=== PATIENT | female | born 1970 | race American Indian/Alaskan Native ===

== ENCOUNTER 2016-07-24 08:36 | Outpatient (CLI) | payer MEDICARE | END 2016-07-24 08:37 | disposition home or self-care (01) | LOC: LAB 08:36 | PROVIDERS: ATTEND Clinical Nurse Specialist Psychiatric/Mental Health | DX: F25.0 Schizoaffective disorder, bipolar type (principal) | CPT/HCPCS: 36415; 86592 ==

== ENCOUNTER 2016-07-26 13:06 | Emergency (ER) | payer MEDICARE ==
[2016-07-26 13:16] VITALS: BP 113/76
[2016-07-26 14:11] LABS: Bacteria,Urine 2+ /HPF (Negative); Bilirubin,Urine NEG (Negative); Blood,Urine NEG (Negative); Ketones,Urine TR mg/dL (Negative); Leukocyte Esterase,Urine NEG (Negative); Mucus,Urine 2+ /HPF; Nitrite,Urine POS (Negative); Protein,Urine <15 mg/dL mg/dL (Negative); Urobilinogen,Urine < 2.0 mg/dL (<2.0)
--- NOTE | 2016-07-26 15:55 | Emergency Department Report ---
ED Female HPI - General Chief complaint: Dental/Oral Stated complaint: TONGUE SWOLLEN/BROWN VAG DISCHARGE Time Seen by Provider: 07/26/16 15:54 Source: patient Mode of arrival: Ambulatory Limitations: No Limitations - History of Present Illness Initial comments: Patient here reports that her tongue has been swollen since Wednesday and she took Benadryl and it went down. Denies any new food or medication in her environment. Patient also says she has a brown vaginal discharge for a week and a half. Denies any urinary burning frequency or urgency. Patient says she used peroxide and mouthwash and it helped but reported that she is also having some sore throat. Denies any drooling, fever or chills, difficulty swallowing , nausea or vomiting, shortness of breath or chest pain. Patient reported that she uses drugs sometimes and she had unsafe sex with men to include giving oral sex. She said that she thinks she has STD and she is concerned about her throat. Patient is requesting to be treated for STDs. She denies any urinary frequency urgency or burning. Denies any abdominal or back pain. MD Complaint: vaginal discharge, possible STD Onset/Timin -: days(s) Severity scale (0 -10): 0 Are you Now?: No (partial hysterectomy) Associated Symptoms: vaginal discharge, other (sore throat). denies: vaginal bleeding, abdominal pain, nausea/vomiting, fever/chills, headaches, loss of appetite, dysuria, hematuria, rash, seizure, shortness of breath, syncope, weakness - Related Data Sexually active: Yes Home Medications Medication Instructions Recorded Confirmed Last Taken Asenapine Maleate [Saphris] 10 mg SL DAILY 09/24/15 09/24/15 09/30/15 HYDROcodone/APAP 5-325 [[place] 1 each PO Q6HR PRN 09/24/15 09/24/15 09/30/15 5/325] amLODIPine [Norvasc] 5 mg PO DAILY 09/24/15 09/24/15 10/01/15 06:15 buPROPion SR [Wellbutrin Sr] 150 mg PO QAM 09/24/15 09/24/15 10/01/15 06:15 lamoTRIgine [LaMICtal] 200 mg PO QDAY 09/24/15 09/24/15 10/01/15 06:15 metFORMIN [Glucophage] 1,000 mg PO BID 09/24/15 09/27/15 09/30/15 Insulin Glargine [Lantus VIAL] 35 unit SUB-Q QHS 09/27/15 09/27/15 09/30/15 Sitagliptin Phosphate [Januvia] 100 mg PO DAILY 09/27/15 09/27/15 09/30/15 Propranolol 10 mg PO DAILY 10/01/15 10/01/15 10/01/15 06:15 Previous Rx's Medication Instructions Recorded Last Taken Type Nitrofurantoin [place]/M-Cryst 100 mg PO Q12HR #14 capsule 07/26/16 Unknown Rx [Macrobid CAP] Allergies Allergy/AdvReac Type Severity Reaction Status Date / Time shellfish derived Allergy Shortness Verified 08/01/15 09:25 of Breath ED Review of Systems ROS: Stated complaint: TONGUE SWOLLEN/BROWN VAG DISCHARGE Other details as noted in HPI Comment: All other systems reviewed and negative Constitutional: denies: chills, fever Eyes: denies: eye discharge ENT: throat pain. denies: ear pain, congestion Respiratory: no symptoms reported Cardiovascular: denies: chest pain, palpitations, edema, syncope Gastrointestinal: denies: abdominal pain, nausea, vomiting, diarrhea Genitourinary: discharge. denies: urgency, dysuria, frequency, hematuria, dyspareunia Musculoskeletal: denies: back pain, arthralgia, myalgia Skin: denies: rash Neurological: denies: headache, numbness, paresthesias, confusion, abnormal gait , vertigo ED Past Medical Hx - Past Medical History Previous Medical History?: Yes Hx Hypertension: Yes (X 2 YRS) Hx Diabetes: Yes Hx Headaches / Migraines: Yes (MIGRAINES) Hx Psychiatric Treatment: Yes (depression, bipolar, schizoaffective disorder, PTSD) - Surgical History Past Surgical History?: Yes Additional Surgical History: partial hysterectomy, hernia reppair - Family History Family history: hypertension - Social History Smoking Status: Current Every Day Smoker Substance Use Type: Cocaine, Marijuana - Medications Home Medications: Home Medications Medication Instructions Recorded Confirmed Last Taken Type Asenapine Maleate [Saphris] 10 mg SL DAILY 09/24/15 09/24/15 09/30/15 History HYDROcodone/APAP 5-325 [[place] 1 each PO Q6HR PRN 09/24/15 09/24/15 09/30/15 History 5/325] amLODIPine [Norvasc] 5 mg PO DAILY 09/24/15 09/24/15 10/01/15 06:15 History buPROPion SR [Wellbutrin Sr] 150 mg PO QAM 09/24/15 09/24/15 10/01/15 06:15 History lamoTRIgine [LaMICtal] 200 mg PO QDAY 09/24/15 09/24/15 10/01/15 06:15 History metFORMIN [Glucophage] 1,000 mg PO BID 09/24/15 09/27/15 09/30/15 History Insulin Glargine [Lantus VIAL] 35 unit SUB-Q QHS 09/27/15 09/27/15 09/30/15 History Sitagliptin Phosphate [Januvia] 100 mg PO DAILY 09/27/15 09/27/15 09/30/15 History Propranolol 10 mg PO DAILY 10/01/15 10/01/15 10/01/15 06:15 History Nitrofurantoin [place]/M-Cryst 100 mg PO Q12HR #14 capsule 07/26/16 Unknown Rx [Macrobid CAP] ED Physical Exam - General Limitations: No Limitations General appearance: alert, in no apparent distress - Head Head exam: Present: normocephalic, normal inspection - Eye Eye exam: Present: normal appearance, PERRL, EOMI. Absent: scleral icterus, conjunctival injection, periorbital swelling, periorbital tenderness Pupils: Present: normal accommodation - ENT ENT exam: Present: normal exam, normal orophraynx, mucous membranes moist, TM's normal bilaterally, normal external ear exam - Neck Neck exam: Present: normal inspection, full ROM. Absent: tenderness, meningismus, lymphadenopathy - Respiratory Respiratory exam: Present: normal lung sounds bilaterally. Absent: respiratory distress, wheezes, rales, rhonchi, stridor, chest wall tenderness - Cardiovascular Cardiovascular Exam: Present: normal rhythm, tachycardia, normal heart sounds - GI/Abdominal GI/Abdominal exam: Present: soft, normal bowel sounds. Absent: distended, tenderness, guarding, rebound, rigid - External exam: Present: normal external exam. Absent: erythema, swelling, lesions, lacerations, ecchymosis, bleeding Speculum exam: Present: tissue - Extremities Exam Extremities exam: Present: normal inspection, full ROM, tenderness, normal capillary refill. Absent: pedal edema, joint swelling - Back Exam Back exam: Present: normal inspection, full ROM. Absent: tenderness, CVA tenderness (R), CVA tenderness (L), muscle spasm, paraspinal tenderness, vertebral tenderness, rash noted - Neurological Exam Neurological exam: Present: alert, oriented X3, normal gait. Absent: motor sensory deficit, reflexes normal - Psychiatric Psychiatric exam: Present: normal affect, normal mood - Skin Skin exam: Present: warm, dry, intact, normal color. Absent: rash ED Course Vital Signs 07/26/16 13:13 Temperature 97.5 F L Pulse Rate 110 H Respiratory 16 Rate Blood Pressure 113/76 O2 Sat by Pulse 99 Oximetry Vital Signs 07/26/16 07/26/16 13:13 17:45 Temperature 97.5 F L Pulse Rate 110 H 84 Respiratory 16 Rate Blood Pressure 113/76 O2 Sat by Pulse 99 Oximetry - Reevaluation(s) Reevaluation #1: 07/26/16 17:45 Patient treated for urinary tract infection and possible contact with STD vaginal discharge. She had no adverse reaction from medication. ED Medical Decision Making - Lab Data Lab Results 07/26/16 Range/Units 13:33 Urine Color Yellow (Yellow) Urine Turbidity Clear (Clear) Urine pH 5.0 (5.0-7.0) Ur Specific [place] 1.023 (1.003-1.030) Urine Protein <15 mg/dl (Negative) mg/dL Urine Glucose (UA) Neg (Negative) mg/dL Urine Ketones Tr (Negative) mg/dL Urine Blood Neg (Negative) Urine Nitrite Pos (Negative) Urine Bilirubin Neg (Negative) Urine Urobilinogen < 2.0 (<2.0) mg/dL Ur Leukocyte Esterase Neg (Negative) Urine WBC (Auto) 2.0 (0.0-6.0) /HPF Urine RBC (Auto) 4.0 (0.0-6.0) /HPF U Epithel Cells (Auto) 3.0 (0-13.0) /HPF Urine Bacteria (Auto) 2+ (Negative) /HPF Urine Mucus 2+ /HPF Urine culture pending Strep Test is negative Throat culture for gonorrhea and strep is pending - Medical Decision Making ED course: Patient here to be treated for STDs because she is concerned about STDs from having unprotected sex and also given oral sex. Her urinalysis came back positive for urinary tract infection. Strep test negative and urine culture, strep culture and gonorrhea throat culture pending. Patient treated with Zithromax 1 g by mouth, Rocephin 1 g IM to cover gonorrhea and UTI and Flagyl 2 g by mouth times one dose to cover Trichomonas. I discussed results with patient and she voiced understanding discussed with her that she needs to follow-up with her primary care physician and if she does not have a primary care physician she can follow up with the health department for further testing. Discussed with patient that her throat did not look red and she did not look like she has thrush. Patient discharged home she had no adverse reaction to medication and discharged home with prescription for Macrobid to cover urinary tract infection. Critical care attestation.: If time is entered above; I have spent that time in minutes in the direct care of this critically ill patient, excluding procedure time. ED Disposition Clinical Impression: Acute cystitis without hematuria, Vaginal discharge, Concern about STD in female without diagnosis Disposition: DISCHARGED TO HOME OR SELFCARE Is pt being admited?: No Does the pt Need Aspirin: No Condition: Stable Instructions: Safe Sex (ED), Urinary Tract Infection in Children (ED) Additional Instructions: Please practice safe sex follow-up at your primary care physician office or held department for STD testing in 7-10 days We will call you if you her throat culture comes back positive for strep or gonorrhea Take medication for urinary tract infection as prescribed Increase her fluid intake Prescriptions: Nitrofurantoin [place]/M-Cryst [Macrobid CAP] 100 mg PO Q12HR #14 capsule Referrals: PRIMARY CARE, [Primary Care Provider] - 3-5 Days [facility] [Outside] - 3-5 Days Forms: Work/School Release Form(ED)
[2016-07-26] MEDS ORDERED: XYLOCAINE 1% MPF 5 mL INFILTRATI ONE (16:45)
[2016-07-26] MEDS ORDERED: ROCEPHIN IM STA (16:45)
[2016-07-26] MEDS ORDERED: ZITHROMAX PO ONE (16:49)
[2016-07-26] MEDS ORDERED: FLAGYL PO ONE (16:49)
== END 2016-07-26 19:05 | disposition home or self-care (01) ==
LOC: ED 13:06
DX: N30.00 Acute cystitis without hematuria (principal); N89.8 Other specified noninflammatory disorders of vagina; I10 Essential (primary) hypertension; E11.9 Type 2 diabetes mellitus without complications; G43.909 Migraine, unspecified, not intractable, without status migrainosus; F25.9 Schizoaffective disorder, unspecified; F31.9 Bipolar disorder, unspecified; F17.200 Nicotine dependence, unspecified, uncomplicated; F12.90 Cannabis use, unspecified, uncomplicated; Z79.4 Long term (current) use of insulin; Z91.013 Allergy to seafood
CPT/HCPCS: 81001; 87076; 87086; 87116; 87186; 87430; 96372; 99284; J0696

== ENCOUNTER 2016-08-12 08:22 | Outpatient (CLI) | payer MEDICARE | END 2016-08-12 08:23 | disposition home or self-care (01) | LOC: LAB 08:22 | PROVIDERS: ATTEND Psychiatry & Neurology Psychiatry | DX: E11.9 Type 2 diabetes mellitus without complications (principal); I10 Essential (primary) hypertension; F32.9 Major depressive disorder, single episode, unspecified; F17.200 Nicotine dependence, unspecified, uncomplicated | CPT/HCPCS: 36415; 83036 ==

== ENCOUNTER 2017-04-21 11:53 | Emergency (ER) | payer MEDICARE ==
[2017-04-21 13:18] LABS: Basophils # (Auto) 0.1 K/mm3 (0.0-0.1); Basophils % (Auto) 0.6 % (0.0-1.8); Eosinophils # (Auto) 0.2 K/mm3 (0.0-0.4); Eosinophils % (Auto) 1.9 % (0.0-4.3); Hematocrit 45.9 % (30.3-42.9); Lymphocytes # (Auto) 3.5 K/mm3 (1.2-5.4); Lymphocytes % (Auto) 26.7 % (13.4-35.0); Mean Corpuscular HGB Conc 33 % (30-34); Mean Corpuscular Hemoglobin 29 pg (28-32); Mean Corpuscular Volume 88 fl (79-97); Monocytes # (Auto) 0.7 K/mm3 (0.0-0.8); Monocytes % (Auto) 5.6 % (0.0-7.3); Platelet Count 249 K/mm3 (140-440); Red Blood Count 5.22 M/mm3 (3.65-5.03); Red Cell Distribution Width 14.4 % (13.2-15.2)
[2017-04-21 13:33] LABS: Alanine Aminotransferase 14 units/L (7-56); Albumin 3.9 g/dL (3.9-5); BUN/Creatinine Ratio 17; Blood Urea Nitrogen 12 mg/dL (7-17); Calcium 9.7 mg/dL (8.4-10.2); Hemolysis Index 13; Lipase 56 units/L (13-60)
[2017-04-21 14:08] LABS: Bacteria,Urine 1+ /HPF (Negative); Bilirubin,Urine NEG (Negative); Blood,Urine NEG (Negative); Color,Urine Yellow (Yellow); Mucus,Urine FEW /HPF; Nitrite,Urine NEG (Negative); Protein,Urine <15 mg/dL mg/dL (Negative); Urobilinogen,Urine < 2.0 mg/dL (<2.0)
[2017-04-21] MEDS ORDERED: TESSALON PERLES PO ONE (16:55)
[2017-04-21] MEDS ORDERED: MOTRIN PO ONE (16:55)
[2017-04-21 17:11] VITALS: BP 126/88
[2017-04-21] MEDS ORDERED: K-DUR PO ONE (18:00)
[2017-04-21] MEDS ORDERED: NACL 0.9% 1000 ML 1,000 ML IV ONE (18:00)
[2017-04-21] MEDS ORDERED: ZOFRAN IV ONE (18:00)
--- NOTE | 2017-04-21 18:09 | Emergency Department Report ---
- General Chief Complaint: Upper Respiratory Infection Stated Complaint: FLU LIKE SYMPTOMS Time Seen by Provider: 04/21/17 16:53 Source: patient Mode of arrival: Ambulatory Limitations: No Limitations - History of Present Illness Initial Comments: This is a 47- year-old female nontoxic, well nourished in appearance, no acute signs of distress presents to the ED with c/o of productive cough, nausea, body aches, rhinorrhea, and nasal congestion x 2 days. Patient stated vomited x1 episode of food content yesterday but denies any vomiting today. Patient describes productive cough as yellow mucus production. Patient denies any headache. Patient denies any recent travels, long car rides, or recent hospital stays. Patient denies calf pain or calf tenderness. Patient denies drooling or hoarseness. Denies any hemoptysis. Patient denies chest pain, abdominal pain, shortness of breath, fever, chills, nausea, vomiting, headache, stiff neck, numbness, tingling. Patient states allergies to shellfish. PMH includes HTN and DM. MD Complaint: cough, rhinorrhea, nasal congestion -: days(s) (2) Severity: mild Severity scale (0 -10): 8 Quality: aching Consistency: constant Improves With: nothing Worsens With: nothing Associated Symptoms: rhinorrhea, nasal congestion, cough, nausea. denies: fever , chills, myalgias, diaphoresis, headache, sore throat, stiff neck, chest pain, shortness of breath, abdominal pain, vomiting, diarrhea, dysuria, rash, confusion, right sweats, weight loss, epistaxis, hoarseness, ear pain Treatments Prior to Arrival: none - Related Data Home Medications Medication Instructions Recorded Confirmed Last Taken lamoTRIgine [LaMICtal] 200 mg PO QDAY 09/24/15 12/02/16 12/01/16 metFORMIN [Glucophage] 1,000 mg PO BID 09/24/15 12/02/16 12/01/16 Sitagliptin Phosphate [Januvia] 100 mg PO DAILY 09/27/15 12/02/16 12/01/16 amLODIPine [Norvasc] 10 mg PO DAILY 12/02/16 12/02/16 12/01/16 Previous Rx's Medication Instructions Recorded Last Taken Type Azithromycin [Zithromax Z-TERE] 250 mg PO DAILY #6 tablet 04/21/17 Unknown Rx Benzonatate [Tessalon Perle] 100 mg PO Q6H PRN #20 capsule 04/21/17 Unknown Rx Ondansetron [Zofran Odt] 4 mg PO Q8HR PRN #20 tab.rapdis 04/21/17 Unknown Rx Oseltamivir [Tamiflu] 75 mg PO BID #14 cap 04/21/17 Unknown Rx Allergies Allergy/AdvReac Type Severity Reaction Status Date / Time shellfish derived Allergy Shortness Verified 08/01/15 09:25 of Breath ED Review of Systems ROS: Stated complaint: FLU LIKE SYMPTOMS Other details as noted in HPI Constitutional: denies: chills, fever Eyes: denies: eye pain, eye discharge, vision change ENT: denies: ear pain, throat pain Respiratory: cough. denies: shortness of breath, wheezing Cardiovascular: denies: chest pain, palpitations Endocrine: no symptoms reported Gastrointestinal: nausea. denies: abdominal pain, diarrhea Genitourinary: denies: urgency, dysuria, discharge Musculoskeletal: denies: back pain, joint swelling, arthralgia Skin: denies: rash, lesions Neurological: denies: headache, weakness, paresthesias Psychiatric: denies: anxiety, depression Hematological/Lymphatic: denies: easy bleeding, easy bruising ED Past Medical Hx - Past Medical History Previous Medical History?: Yes Hx Hypertension: Yes Hx Heart Attack/AMI: No Hx Congestive Heart Failure: No Hx Diabetes: Yes Hx Deep Vein Thrombosis: No Hx Pulmonary Embolism: No Hx GERD: No Hx Liver Disease: No Hx Renal Disease: Yes Hx Headaches / Migraines: No Hx Seizures: No Hx Psychiatric Treatment: Yes (depression, bipolar, schizoaffective disorder, PTSD) Hx Asthma: No Hx COPD: No Hx Tuberculosis: No Hx Dementia: No - Surgical History Past Surgical History?: Yes Hx Coronary Stent: No Hx Pacemaker: No Hx Internal Defibrillator: No Additional Surgical History: partial hysterectomy, hernia repair, bladder repair - Social History Smoking Status: Current Every Day Smoker Substance Use Type: Prescribed - Medications Home Medications: Home Medications Medication Instructions Recorded Confirmed Last Taken Type lamoTRIgine [LaMICtal] 200 mg PO QDAY 09/24/15 12/02/16 12/01/16 History metFORMIN [Glucophage] 1,000 mg PO BID 09/24/15 12/02/16 12/01/16 History Sitagliptin Phosphate [Januvia] 100 mg PO DAILY 09/27/15 12/02/16 12/01/16 History amLODIPine [Norvasc] 10 mg PO DAILY 12/02/16 12/02/16 12/01/16 History Azithromycin [Zithromax Z-TERE] 250 mg PO DAILY #6 tablet 04/21/17 Unknown Rx Benzonatate [Tessalon Perle] 100 mg PO Q6H PRN #20 capsule 04/21/17 Unknown Rx Ondansetron [Zofran Odt] 4 mg PO Q8HR PRN #20 tab.rapdis 04/21/17 Unknown Rx Oseltamivir [Tamiflu] 75 mg PO BID #14 cap 04/21/17 Unknown Rx ED Physical Exam - General Limitations: No Limitations General appearance: alert, in no apparent distress - Head Head exam: Present: atraumatic, normocephalic - Eye Eye exam: Present: normal appearance, PERRL, EOMI Pupils: Present: normal accommodation - ENT ENT exam: Present: normal exam, normal orophraynx, mucous membranes moist, TM's normal bilaterally, normal external ear exam - Neck Neck exam: Present: normal inspection, full ROM. Absent: tenderness, meningismus, lymphadenopathy, thyromegaly - Respiratory Respiratory exam: Present: normal lung sounds bilaterally. Absent: respiratory distress, wheezes, rales, rhonchi, stridor, chest wall tenderness, accessory muscle use, decreased breath sounds, prolonged expiratory - Cardiovascular Cardiovascular Exam: Present: regular rate, normal rhythm, normal heart sounds. Absent: irregular rhythm, systolic murmur, diastolic murmur, rubs, gallop - GI/Abdominal GI/Abdominal exam: Present: soft, normal bowel sounds. Absent: distended, tenderness, guarding, rebound, rigid, diminished bowel sounds - Rectal Rectal exam: Present: deferred - Extremities Exam Extremities exam: Present: normal inspection, full ROM, normal capillary refill. Absent: tenderness, pedal edema, joint swelling, calf tenderness - Back Exam Back exam: Present: normal inspection, full ROM. Absent: tenderness, CVA tenderness (R), CVA tenderness (L), muscle spasm, paraspinal tenderness, vertebral tenderness, rash noted - Neurological Exam Neurological exam: Present: alert, oriented X3, CN II-XII intact, normal gait, reflexes normal - Psychiatric Psychiatric exam: Present: normal affect, normal mood - Skin Skin exam: Present: warm, dry, intact, normal color. Absent: rash ED Course Vital Signs 04/21/17 04/21/17 04/21/17 12:02 17:01 17:10 Temperature 97.8 F Pulse Rate 105 H 92 H Respiratory 20 20 20 Rate Blood Pressure 123/82 Blood Pressure 126/88 [Left] O2 Sat by Pulse 99 98 Oximetry 04/21/17 04/21/17 17:13 18:01 Temperature 98.4 F Pulse Rate Respiratory 18 Rate Blood Pressure Blood Pressure [Left] O2 Sat by Pulse Oximetry - Reevaluation(s) Reevaluation #1: 04/21/17 18:19 Patient is speaking in full sentences with no signs of distress noted. - Consultations Consultation #1: 04/21/17 18:19 Dr. Baptiste has been consulted on patient history, physical exam, and laboratory findings and agrees to plan of care in the emergency room as well as discharge. ED Medical Decision Making - Lab Data Result diagrams: 04/21/17 12:54 04/21/17 12:54 - Medical Decision Making This is a 33-year-old female that presents with upper resp infection. Patient is stable and was examined by me. Chest xray has been obtained and dictated by radiologist with possible bronchitis. Patient notified of x-ray results with no question or by the patient. Vital signs stable prior to discharge. Patient received 1 L of normal saline IV and 4 mg of Zofran. Patient also received 20 meq of potassium. Patient is afebrile. Decreased heart rate. Labs obtained with no acute abnormalities. I'll treat patient empirically with zpak and tamiflu due to symptoms worsening and symptoms of influenza at discharge. Patient received motrin and tessoln perrls which patient stated symptoms are improving and subsiding. Patient was orally rehydrated in the ER and patient tolerated well with no signs of nausea or vomiting. Patient was instructed Follow-up with a primary care doctor in 3-5 days or if symptoms worsen and continue return to emergency room as soon as possible. At time time of discharge, the patient does not seem toxic or ill in appearance. No acute signs of distress noted. Patient agrees to discharge treatment plan of care. No further questions noted by the patient. This chart is dictated with using Dragon Dictation Program Critical care attestation.: If time is entered above; I have spent that time in minutes in the direct care of this critically ill patient, excluding procedure time. ED Disposition Clinical Impression: Upper respiratory infection Qualifiers: URI type: unspecified URI Qualified Code(s): J06.9 - Acute upper respiratory infection, unspecified Disposition: - TO HOME OR SELFCARE Is pt being admited?: No Does the pt Need Aspirin: No Condition: Stable Instructions: Benzonatate (By mouth), Azithromycin (By mouth), Ondansetron ( Injection), Oseltamivir (By mouth), Upper Respiratory Infection (ED) Additional Instructions: Follow-up with a primary care doctor in 3-5 days or if symptoms worsen and continue return to emergency room as soon as possible. Increase rest, hydration, and take Motrin fever episodes as prescribed. Prescriptions: Azithromycin [Zithromax Z-TERE] 250 mg PO DAILY #6 tablet Benzonatate [Tessalon Perle] 100 mg PO Q6H PRN #20 capsule PRN Reason: Cough Ondansetron [Zofran Odt] 4 mg PO Q8HR PRN #20 tab.rapdis PRN Reason: Nausea Oseltamivir [Tamiflu] 75 mg PO BID #14 cap Referrals: WENDI HAN MD [Primary Care Provider] - 3-5 Days PRIMARY CARE, [Referring] - 3-[address] [facility] [Outside] - 3-5 Days [facility] [Outside] - 3-5 Days Forms: Work/School Release Form(ED)
--- NOTE | 2017-04-21 18:57 | XRay Report ---
FINAL REPORT EXAM: XR CHEST ROUTINE 2V HISTORY: cough TECHNIQUE: 2 view examination of the chest PRIORS: None FINDINGS: Slight thoracic spine curvature with mid right apex. There is nonspecific prominence of the perihilar interstitial markings and suggestion of slight perihilar bronchial wall thickening. Findings are more prominent in the right perihilar region. There is no focal pulmonary air space consolidation. No evidence of pleural effusion or pneumothorax. The cardiac silhouette size and pulmonary vascularity are normal. No evidence of acute skeletal pathology. IMPRESSION: Interstitial prominence and bronchial wall thickening. In the acute setting, findings may reflect small airways disease, bronchitis. The differential includes underlying reactive airways disease, atypical interstitial pneumonitis, or viral lower airways disease. If chronic, this may represent interstitial scarring.
== END 2017-04-21 19:44 | disposition home or self-care (01) ==
LOC: ED 11:53
DX: J06.9 Acute upper respiratory infection, unspecified (principal); I10 Essential (primary) hypertension; Z91.013 Allergy to seafood; F20.9 Schizophrenia, unspecified; F31.9 Bipolar disorder, unspecified; F17.200 Nicotine dependence, unspecified, uncomplicated
CPT/HCPCS: 36415; 71046; 80053; 81001; 83690; 85025; 96361; 96374; 99284; J2405; J7030

== ENCOUNTER 2017-05-25 02:49 | Emergency (ER) | payer MEDICARE ==
[2017-05-25 03:34] LABS: Basophils # (Auto) 0.1 K/mm3 (0.0-0.1); Basophils % (Auto) 0.7 % (0.0-1.8); Eosinophils # (Auto) 0.1 K/mm3 (0.0-0.4); Eosinophils % (Auto) 0.6 % (0.0-4.3); Hematocrit 44.4 % (30.3-42.9); Hemoglobin 14.3 gm/dl (10.1-14.3); Lymphocytes # (Auto) 3.4 K/mm3 (1.2-5.4); Lymphocytes % (Auto) 28.4 % (13.4-35.0); Mean Corpuscular HGB Conc 32 % (30-34); Mean Corpuscular Hemoglobin 28 pg (28-32); Mean Corpuscular Volume 87 fl (79-97); Monocytes # (Auto) 0.8 K/mm3 (0.0-0.8); Monocytes % (Auto) 6.3 % (0.0-7.3); Platelet Count 294 K/mm3 (140-440); Red Blood Count 5.13 M/mm3 (3.65-5.03); Red Cell Distribution Width 13.9 % (13.2-15.2)
[2017-05-25 03:57] LABS: BUN/Creatinine Ratio 9; Blood Urea Nitrogen 9 mg/dL (7-17); Calcium 9.3 mg/dL (8.4-10.2); Hemolysis Index 6
[2017-05-25 04:39] LABS: Bilirubin,Urine NEG (Negative); Blood,Urine NEG (Negative); Color,Urine Yellow (Yellow); Mucus,Urine FEW /HPF
[2017-05-25] MEDS ORDERED: TYLENOL ONE (06:49)
[2017-05-25] MEDS ORDERED: TYLENOL PO ONE (06:52)
[2017-05-25] MEDS ORDERED: ZOFRAN ODT PO ONE (07:51)
[2017-05-25] MEDS ORDERED: FLEXERIL PO ONE (07:51)
--- NOTE | 2017-05-25 08:06 | Emergency Department Report ---
HPI - General Chief Complaint: Back Pain/Injury Time Seen by Provider: 05/25/17 07:33 - HPI HPI: She is a 47-year-old female with a history of diabetes and blood pressure controlled with medication who presents to ED today complaining of lower back pain started last night. Patient states she had no injuries or trauma to the back. She reports pain is throbbing and aching in nature. Patient also states last night she had some [employer] for dinner. Patient states vomiting episode started shortly. Patient states she had 3 episodes of vomiting about 3- 4 episodes of nonbloody watery stools. Patient states symptoms resolved about midnight. She denies fevers/chills/shortness of breath abdominal pain/dizziness/headache. ED Past Medical Hx - Past Medical History Previous Medical History?: Yes Hx Hypertension: Yes Hx Heart Attack/AMI: No Hx Congestive Heart Failure: No Hx Diabetes: Yes Hx Deep Vein Thrombosis: No Hx Pulmonary Embolism: No Hx GERD: No Hx Liver Disease: No Hx Renal Disease: Yes Hx Headaches / Migraines: No Hx Seizures: No Hx Psychiatric Treatment: Yes (depression, bipolar, schizoaffective disorder, PTSD) Hx Asthma: No Hx COPD: No Hx Tuberculosis: No Hx Dementia: No - Surgical History Past Surgical History?: Yes Hx Coronary Stent: No Hx Pacemaker: No Hx Internal Defibrillator: No Additional Surgical History: partial hysterectomy, hernia repair, bladder repair - Social History Smoking Status: Current Every Day Smoker Substance Use Type: None - Medications Home Medications: Home Medications Medication Instructions Recorded Confirmed Last Taken Type lamoTRIgine [LaMICtal] 200 mg PO QDAY 09/24/15 12/02/16 12/01/16 History metFORMIN [Glucophage] 1,000 mg PO BID 09/24/15 12/02/16 12/01/16 History Sitagliptin Phosphate [Januvia] 100 mg PO DAILY 09/27/15 12/02/16 12/01/16 History amLODIPine [Norvasc] 10 mg PO DAILY 12/02/16 12/02/16 12/01/16 History Azithromycin [Zithromax Z-TERE] 250 mg PO DAILY #6 tablet 04/21/17 Unknown Rx Benzonatate [Tessalon Perle] 100 mg PO Q6H PRN #20 capsule 04/21/17 Unknown Rx Ondansetron [Zofran Odt] 4 mg PO Q8HR PRN #20 tab.rapdis 04/21/17 Unknown Rx Oseltamivir [Tamiflu] 75 mg PO BID #14 cap 04/21/17 Unknown Rx Cyclobenzaprine [Flexeril 10 MG 10 mg PO QHS #20 tablet 05/25/17 Unknown Rx TAB] Ondansetron [Zofran ODT TAB] 8 mg PO BID #20 tab.rapdis 05/25/17 Unknown Rx ED Review of Systems ROS: Stated complaint: DIARREAH,VOMITING,HEADACHE,BACK PAIN Other details as noted in HPI Constitutional: denies: chills, fever Eyes: denies: eye pain, eye discharge, vision change ENT: denies: ear pain, throat pain Respiratory: denies: cough, shortness of breath, wheezing Cardiovascular: denies: chest pain, palpitations Endocrine: no symptoms reported Gastrointestinal: denies: abdominal pain, nausea, diarrhea Genitourinary: denies: urgency, dysuria, discharge Musculoskeletal: denies: back pain, joint swelling, arthralgia Skin: denies: rash, lesions Neurological: denies: headache, weakness, paresthesias Psychiatric: denies: anxiety, depression Hematological/Lymphatic: denies: easy bleeding, easy bruising Physical Exam - Physical Exam Vital Signs: Vital Signs 05/25/17 02:55 Temperature 97.7 F Pulse Rate 105 H Respiratory 18 Rate Blood Pressure 126/82 O2 Sat by Pulse 97 Oximetry Physical Exam: GENERAL: Alert and oriented x3, no apparent distress, Normal Gait, atraumatic. HEAD: Head is normocephalic and a-traumatic. MOUTH:Mouth is well hydrated and without lesions. Tonsils nonerythematous or swollen, Uvula midline, Tongue not elevated. Mucous membranes are moist. Posterior pharynx clear, no exudate or lesions. Patent airways. NECK: Supple. Non edematous, No carotid bruits. No lymphadenopathy or thyromegaly. No C-spine tenderness LUNGS: Symetrical with respiration, No wheezing, no rales or crackles, CTAB. HEART: S1, S2 present, regular rate and rhythm without murmur, no rubs, no gallops. Non tender to palpation ABDOMEN: No organomegaly was noted,Positive bowel sounds, soft, and non- distended. . Nontender to palpation on all Quadrants, NO CVA tenderness. BACK: Full range of motion, no spinal tenderness, nontender to palpation. EXTREMITIES/MUSCULOSKELETAL: No cyanosis, clubbing, rash, lesions or edema. Full ROM bilaterally. UE/LE Pulses 2+ bilaterally. NEUROLOGIC: The patient is cooperative with no focal neurologic deficits. Cranial nerves II through XII are grossly intact. Normal speech. Normal sensation in bilateral upper and lower extremities, No loss of sensation SKIN: Warm and dry, No lesions, No ulceration or induration present. ED Course Vital Signs 05/25/17 02:55 Temperature 97.7 F Pulse Rate 105 H Respiratory 18 Rate Blood Pressure 126/82 O2 Sat by Pulse 97 Oximetry ED Medical Decision Making - Lab Data Result diagrams: 05/25/17 03:10 05/25/17 03:10 Laboratory Last Values WBC 11.9 K/mm3 (4.5-11.0) H 05/25/17 03:10 RBC 5.13 M/mm3 (3.65-5.03) H 05/25/17 03:10 Hgb 14.3 gm/dl (10.1-14.3) 05/25/17 03:10 Hct 44.4 % (30.3-42.9) H 05/25/17 03:10 MCV 87 fl (79-97) 05/25/17 03:10 MCH 28 pg (28-32) 05/25/17 03:10 MCHC 32 % (30-34) 05/25/17 03:10 RDW 13.9 % (13.2-15.2) 05/25/17 03:10 Plt Count 294 K/mm3 (140-440) 05/25/17 03:10 Lymph % (Auto) 28.4 % (13.4-35.0) 05/25/17 03:10 [place] % (Auto) 6.3 % (0.0-7.3) 05/25/17 03:10 Eos % (Auto) 0.6 % (0.0-4.3) 05/25/17 03:10 Baso % (Auto) 0.7 % (0.0-1.8) 05/25/17 03:10 Lymph # 3.4 K/mm3 (1.2-5.4) 05/25/17 03:10 [place] # 0.8 K/mm3 (0.0-0.8) 05/25/17 03:10 Eos # 0.1 K/mm3 (0.0-0.4) 05/25/17 03:10 Baso # 0.1 K/mm3 (0.0-0.1) 05/25/17 03:10 Seg Neutrophils % 64.0 % (40.0-70.0) 05/25/17 03:10 Seg Neutrophils # 7.6 K/mm3 (1.8-7.7) 05/25/17 03:10 Sodium 143 mmol/L (137-145) 05/25/17 03:10 Potassium 4.0 mmol/L (3.6-5.0) 05/25/17 03:10 Chloride 105.5 mmol/L (98-107) 05/25/17 03:10 Carbon Dioxide 26 mmol/L (22-30) 05/25/17 03:10 Anion Gap 16 mmol/L 05/25/17 03:10 BUN 9 mg/dL (7-17) 05/25/17 03:10 Creatinine 1.0 mg/dL (0.7-1.2) 05/25/17 03:10 Estimated GFR > 60 ml/min 05/25/17 03:10 BUN/Creatinine Ratio 9 % 05/25/17 03:10 Glucose 104 mg/dL (65-100) H 05/25/17 03:10 Calcium 9.3 mg/dL (8.4-10.2) 05/25/17 03:10 Urine Color Yellow (Yellow) 05/25/17 04:10 Urine Turbidity Clear (Clear) 05/25/17 04:10 Urine pH 5.0 (5.0-7.0) 05/25/17 04:10 Ur Specific [place] 1.025 (1.003-1.030) 05/25/17 04:10 Urine Protein 30 mg/dl mg/dL (Negative) 05/25/17 04:10 Urine Glucose (UA) Neg mg/dL (Negative) 05/25/17 04:10 Urine Ketones Tr mg/dL (Negative) 05/25/17 04:10 Urine Blood Neg (Negative) 05/25/17 04:10 Urine Nitrite Neg (Negative) 05/25/17 04:10 Urine Bilirubin Neg (Negative) 05/25/17 04:10 Urine Urobilinogen 2.0 mg/dL (<2.0) 05/25/17 04:10 Ur Leukocyte Esterase Neg (Negative) 05/25/17 04:10 Urine WBC (Auto) 1.0 /HPF (0.0-6.0) 05/25/17 04:10 Urine RBC (Auto) 1.0 /HPF (0.0-6.0) 05/25/17 04:10 U Epithel Cells (Auto) 3.0 /HPF (0-13.0) 05/25/17 04:10 Urine Mucus Few /HPF 05/25/17 04:10 - Medical Decision Making 47-year-old female presents with mild gastroenteritis ED course: Patient had no vomiting or diarrhea episodes in the ED. Patient had no abdominal pending any D CBC, CMP, urinalys or reported normal results. I discussed his findings with the patient. I discussed with the patient to increase hydration, brat diet. Patient received Zofran in the ED for nausea and Flexeril in the ED for low back muscle strain. Vital signs are normal patient is in no acute distress Discussed with patient follow-up with primary care physician. Discussed the patient and take medications as prescribed. Patient has no neurological deficit. Patient is alert and oriented 3 and understands all instructions given. Discussed drowsiness effect of Flexeril makes her drowsy and not to operate machinery while taking flexeril Critical care attestation.: If time is entered above; I have spent that time in minutes in the direct care of this critically ill patient, excluding procedure time. ED Disposition Clinical Impression: Gastroenteritis Food poisoning Qualifiers: Encounter type: initial encounter Injury intent: accidental or unintentional Qualified Code(s): T62.91XA - Toxic effect of unspecified noxious substance eaten as food, accidental (unintentional), initial encounter Disposition: DC-01 TO HOME OR SELFCARE Is pt being admited?: No Does the pt Need Aspirin: No Condition: Stable Instructions: Gastroenteritis (ED), Acute Nausea and Vomiting (ED), Food Poisoning (ED), Musculoskeletal Pain (ED) Additional Instructions: Make sure to follow up with the primary care physician as discussed. Take all your medications as you've been prescribed. If you have any worsening symptoms or develop new symptoms please return to ED immediately. Prescriptions: Cyclobenzaprine [Flexeril 10 MG TAB] 10 mg PO QHS #20 tablet Ondansetron [Zofran ODT TAB] 8 mg PO BID #20 tab.rapdis Referrals: PRIMARY CARE, [Primary Care Provider] - 3-5 Days [facility] [Outside] - 3-5 Days [facility] [Outside] - 3-5 Days [facility] [Outside] - 3-5 Days Forms: Work/School Release Form Time of Disposition: 08:13
[2017-05-25 08:34] VITALS: BP 128/86
== END 2017-05-25 08:32 | disposition home or self-care (01) ==
LOC: ED 02:49
DX: T62.91XA Toxic effect of unspecified noxious substance eaten as food, accidental (unintentional), initial encounter (principal); K52.9 Noninfective gastroenteritis and colitis, unspecified; I10 Essential (primary) hypertension; E11.9 Type 2 diabetes mellitus without complications; F17.200 Nicotine dependence, unspecified, uncomplicated
CPT/HCPCS: 36415; 80048; 81001; 85025; 87086; Q0162

== ENCOUNTER 2017-10-03 23:29 | Emergency (ER) | payer MEDICARE ==
[2017-10-03 23:38] VITALS: BP 140/94
[2017-10-04 00:14] LABS: Basophils # (Auto) 0.1 K/mm3 (0.0-0.1); Basophils % (Auto) 0.6 % (0.0-1.8); Eosinophils # (Auto) 0.2 K/mm3 (0.0-0.4); Eosinophils % (Auto) 2.4 % (0.0-4.3); Hematocrit 43.5 % (30.3-42.9); Hemoglobin 14.3 gm/dl (10.1-14.3); Lymphocytes # (Auto) 2.8 K/mm3 (1.2-5.4); Lymphocytes % (Auto) 27.1 % (13.4-35.0); Mean Corpuscular HGB Conc 33 % (30-34); Mean Corpuscular Hemoglobin 28 pg (28-32); Mean Corpuscular Volume 86 fl (79-97); Monocytes # (Auto) 0.6 K/mm3 (0.0-0.8); Monocytes % (Auto) 5.9 % (0.0-7.3); Platelet Count 257 K/mm3 (140-440); Red Blood Count 5.06 M/mm3 (3.65-5.03); Red Cell Distribution Width 14.1 % (13.2-15.2)
[2017-10-04 00:27] LABS: Alanine Aminotransferase 9 units/L (7-56); Albumin 4.4 g/dL (3.9-5); BUN/Creatinine Ratio 10; Blood Urea Nitrogen 9 mg/dL (7-17); Calcium 9.9 mg/dL (8.4-10.2); Hemolysis Index 4
[2017-10-04 01:03] LABS: Bilirubin,Urine NEG (Negative); Blood,Urine NEG (Negative); Color,Urine Yellow (Yellow); Mucus,Urine FEW /HPF; Protein,Urine <15 mg/dL mg/dL (Negative)
== END 2017-10-04 00:30 | disposition left against medical advice (07) ==
LOC: ED 23:29
DX: M54.9 Dorsalgia, unspecified (principal); Z53.21 Procedure and treatment not carried out due to patient leaving prior to being seen by health care provider
CPT/HCPCS: 36415; 80053; 81001; 85025

== ENCOUNTER 2017-10-04 07:35 | Emergency (ER) | payer MEDICARE ==
[2017-10-04] MEDS ORDERED: TYLENOL ONE (07:53)
[2017-10-04] MEDS ORDERED: TYLENOL PO ONE (07:57)
[2017-10-04] MEDS ORDERED: DILAUDID IV ONE (09:37)
[2017-10-04] MEDS ORDERED: NACL 0.9% 1000 ML 1,000 ML IV ONE (09:37)
[2017-10-04] MEDS ORDERED: TORADOL IV ONE (09:37)
--- NOTE | 2017-10-04 09:40 | Emergency Department Report ---
ED General Adult HPI - General Chief complaint: Abdominal Pain Stated complaint: PAIN IN LEFT SIDE PAIN STOMACH Time Seen by Provider: 10/04/17 09:28 Source: patient, RN notes reviewed, old records reviewed Mode of arrival: Ambulatory Limitations: No Limitations - History of Present Illness Initial comments: This is a 47-year-old female who is unknown to this provider previously. Past medical history includes hypertension, diabetes, bipolar, depression, history of cholecystectomy, history of partial hysterectomy. Patient presents to the ER with a primary complaint of epigastric pain that radiates down to the suprapubic region, left CVA pain, left radicular pain, and diarrhea. Her symptoms have been constant for the past 2-3 days. Her pain is sharp, increases with palpation, and decreases with rest. She denies DVT, pulmonary embolus risk factors. -: Gradual Location: back, abdomen Radiation: extremity Severity scale (0 -10): 8 Quality: aching Consistency: intermittent Improves with: medication, rest Worsens with: movement Associated Symptoms: loss of appetite, malaise, weakness, other (diarrhea). denies: confusion, chest pain, cough, diaphoresis, fever/chills, headaches, nausea/vomiting, rash, seizure, shortness of breath, syncope - Related Data Home Medications Medication Instructions Recorded Confirmed Last Taken lamoTRIgine [LaMICtal] 200 mg PO QDAY 09/24/15 12/02/16 12/01/16 metFORMIN [Glucophage] 1,000 mg PO BID 09/24/15 12/02/16 12/01/16 Sitagliptin Phosphate [Januvia] 100 mg PO DAILY 09/27/15 12/02/16 12/01/16 amLODIPine [Norvasc] 10 mg PO DAILY 12/02/16 12/02/16 12/01/16 Previous Rx's Medication Instructions Recorded Last Taken Type Azithromycin [Zithromax Z-TERE] 250 mg PO DAILY #6 tablet 04/21/17 Unknown Rx Benzonatate [Tessalon Perle] 100 mg PO Q6H PRN #20 capsule 04/21/17 Unknown Rx Ondansetron [Zofran Odt] 4 mg PO Q8HR PRN #20 tab.rapdis 04/21/17 Unknown Rx Oseltamivir [Tamiflu] 75 mg PO BID #14 cap 04/21/17 Unknown Rx Cyclobenzaprine [Flexeril 10 MG 10 mg PO QHS #20 tablet 05/25/17 Unknown Rx TAB] Ondansetron [Zofran ODT TAB] 8 mg PO BID #20 tab.rapdis 05/25/17 Unknown Rx Acetaminophen [Tylenol Arthritis] 650 mg PO Q6HR PRN #30 tablet.er 10/04/17 Unknown Rx Ibuprofen [Motrin] 600 mg PO Q8H PRN #30 tablet 10/04/17 Unknown Rx Allergies Allergy/AdvReac Type Severity Reaction Status Date / Time shellfish derived Allergy Shortness Verified 08/01/15 09:25 of Breath ED Review of Systems ROS: Stated complaint: PAIN IN LEFT SIDE PAIN STOMACH Other details as noted in HPI Comment: All other systems reviewed and negative Constitutional: malaise Gastrointestinal: abdominal pain, diarrhea Musculoskeletal: back pain, myalgia Neurological: paresthesias ED Past Medical Hx - Past Medical History Hx Hypertension: Yes Hx Heart Attack/AMI: No Hx Congestive Heart Failure: No Hx Diabetes: Yes Hx Deep Vein Thrombosis: No Hx Pulmonary Embolism: No Hx GERD: No Hx Liver Disease: No Hx Renal Disease: Yes Hx Headaches / Migraines: No Hx Seizures: No Hx Psychiatric Treatment: Yes (depression, bipolar, schizoaffective disorder, PTSD) Hx Asthma: No Hx COPD: No Hx Tuberculosis: No Hx Dementia: No - Surgical History Hx Coronary Stent: No Hx Pacemaker: No Hx Internal Defibrillator: No Hx Cholecystectomy: Yes Additional Surgical History: partial hysterectomy, hernia repair, bladder repair - Social History Smoking Status: Current Every Day Smoker Substance Use Type: None - Medications Home Medications: Home Medications Medication Instructions Recorded Confirmed Last Taken Type lamoTRIgine [LaMICtal] 200 mg PO QDAY 09/24/15 12/02/16 12/01/16 History metFORMIN [Glucophage] 1,000 mg PO BID 09/24/15 12/02/16 12/01/16 History Sitagliptin Phosphate [Januvia] 100 mg PO DAILY 09/27/15 12/02/16 12/01/16 History amLODIPine [Norvasc] 10 mg PO DAILY 12/02/16 12/02/16 12/01/16 History Azithromycin [Zithromax Z-TERE] 250 mg PO DAILY #6 tablet 04/21/17 Unknown Rx Benzonatate [Tessalon Perle] 100 mg PO Q6H PRN #20 capsule 04/21/17 Unknown Rx Ondansetron [Zofran Odt] 4 mg PO Q8HR PRN #20 tab.rapdis 04/21/17 Unknown Rx Oseltamivir [Tamiflu] 75 mg PO BID #14 cap 04/21/17 Unknown Rx Cyclobenzaprine [Flexeril 10 MG 10 mg PO QHS #20 tablet 05/25/17 Unknown Rx TAB] Ondansetron [Zofran ODT TAB] 8 mg PO BID #20 tab.rapdis 05/25/17 Unknown Rx Acetaminophen [Tylenol Arthritis] 650 mg PO Q6HR PRN #30 tablet.er 10/04/17 Unknown Rx Ibuprofen [Motrin] 600 mg PO Q8H PRN #30 tablet 10/04/17 Unknown Rx ED Physical Exam - General Limitations: No Limitations General appearance: alert, in no apparent distress, obese - Head Head exam: Present: atraumatic, normocephalic - Eye Eye exam: Present: normal appearance - ENT ENT exam: Present: normal exam, normal orophraynx, mucous membranes moist, normal external ear exam - Neck Neck exam: Present: normal inspection, full ROM - Respiratory Respiratory exam: Present: normal lung sounds bilaterally. Absent: respiratory distress - Cardiovascular Cardiovascular Exam: Present: regular rate, normal rhythm, normal heart sounds. Absent: bradycardia, tachycardia, irregular rhythm, systolic murmur, diastolic murmur, rubs, gallop - GI/Abdominal GI/Abdominal exam: Present: soft, tenderness, normal bowel sounds, other (there is epigastric tenderness. There is supraumbilical tenderness.). Absent: distended, guarding, rebound, rigid, pulsatile mass - Extremities Exam Extremities exam: Present: normal inspection, full ROM, normal capillary refill , other (2+ pulses noted in the bilateral upper, lower extremities. Compartments soft. No long bony tenderness. The pelvis is stable.). Absent: pedal edema, joint swelling, calf tenderness - Back Exam Back exam: Present: normal inspection, full ROM, CVA tenderness (L), paraspinal tenderness - Neurological Exam Neurological exam: Present: alert, oriented X3, CN II-XII intact, normal gait, other (Extraocular movements intact. Tongue midline. No facial droop. Facial sensation intact to light touch in the V1, V2, V3 distribution bilaterally. 5 and 5 strength in 4 extremities.. Sensation is intact to light touch in 4 extremities.). Absent: motor sensory deficit - Psychiatric Psychiatric exam: Present: anxious - Skin Skin exam: Present: warm, dry, intact, normal color. Absent: rash ED Course Vital Signs 10/04/17 10/04/17 07:48 10:02 Temperature 98.4 F Pulse Rate 127 H Respiratory 16 18 Rate Blood Pressure 140/93 O2 Sat by Pulse 99 Oximetry - Reevaluation(s) Reevaluation #1: 10/04/17 11:02 Differential diagnosis, including not limited to: GERD, gastritis, pancreatitis , renal colic, myositis, urinary tract infection, pneumonia, left-sided radiculopathy Assessment and plan: 47-year-old female who has no pulmonary embolus or DVT risk factors, low risk well's criteria, with resultant tachycardia, with epigastric pain, left CVA pain, left lumbar radicular pain, has appropriate strength, sensation, no pulsatile abdominal mass, no clinical indication of epidural compression syndrome at this time, downgoing plantar reflexes in the bilateral lower extremities, the primary complaint of abdominal pain secondary complaints of radicular back pain, and diarrhea. Has been seen within the past 12 hours, recent laboratory studies were unremarkable, tachycardia has resolved, we will treat her pain, obtain CT scan of the abdomen and pelvis and then reassess. Reevaluation #2: 10/04/17 11:42 Reassessed. Tachycardia improved. Belly soft on repeat exam. Tolerating liquid feeds. CT scan of the abdomen and pelvis negative for surgical pathology. Patient will be discharged with expectant management. Return precautions. ED Medical Decision Making - Lab Data Vital Signs 10/04/17 10/04/17 07:48 10:02 Temperature 98.4 F Pulse Rate 127 H Respiratory 16 18 Rate Blood Pressure 140/93 O2 Sat by Pulse 99 Oximetry Lab Results 10/04/17 Range/Units 09:20 Lipase 26 (13-60) units/L Laboratory studies within the past 24 hours have been reviewed, printed out on the chart and heart copy and are essentially unremarkable Vital Signs 10/04/17 10/04/17 07:48 10:02 Temperature 98.4 F Pulse Rate 127 H Respiratory 16 18 Rate Blood Pressure 140/93 O2 Sat by Pulse 99 Oximetry - EKG Data -: EKG Interpreted by [place] EKG shows normal: sinus rhythm Rate: normal - EKG Data 10/04/17 11:05 Sinus, 23 beats per minute, normal axis, QTC prolonged, premature ventricular contraction, abnormal EKG, not a STEMI - Radiology Data Radiology results: pending, report reviewed Critical care attestation.: If time is entered above; I have spent that time in minutes in the direct care of this critically ill patient, excluding procedure time. ED Disposition Clinical Impression: Abdominal pain Qualifiers: Abdominal location: unspecified location Qualified Code(s): R10.9 - Unspecified abdominal pain Back pain Qualifiers: Back pain location: low back pain Chronicity: unspecified Back pain laterality : left Sciatica presence: with sciatica Sciatica laterality: sciatica of left side Qualified Code(s): M54.42 - Lumbago with sciatica, left side Disposition: TO HOME OR SELFCARE Is pt being admited?: No Does the pt Need Aspirin: No Condition: Good Instructions: Abdominal Pain (ED) Additional Instructions: Do not take metformin for the next 48 hours rest, and avoid heavy lifting. Avoid strenuous physical activities. Pain medications as needed/directed. Follow-up with the primary care doctor within 7 -10 days. Return to the ER right away with new pain, worsening pain, migration of pain, extremity weakness, change in mental status, bladder or bowel retention or incontinence, inability to tolerate liquid feeds. Referrals: PRIMARY CARE, [Primary Care Provider] - 3-5 Days ANTONIA BAIN MD [Staff Physician] - 3-5 Days
--- NOTE | 2017-10-04 11:16 | Cat Scan Report ---
CT scan of abdomen and pelvis with IV contrast: History: Abdominal pain. Findings: Normal lung bases. No pleural or pericardial effusion. Normal liver spleen and pancreas. Patient is status post cholecystectomy. Normal adrenals. Cyst in the left kidney measures 4.1 cm. Normal bladder. No free intraperitoneal fluid or air. No evidence of adenopathy. Normal aorta. Ventral hernia containing fat measuring 3.5 cm in diameter. Gaseous colon with moderate volume stool in colon. Appendix diameter 6 mm. No periappendiceal inflammation. No evidence of diverticulitis. Cyst right adnexa measuring 1.5 cm in diameter. Impression: Appendix diameter 6 mm. No periappendiceal inflammation. Cyst right adnexa. Cyst left kidney. Ventral hernia containing fat.
[2017-10-04 12:10] VITALS: BP 122/77
== END 2017-10-04 12:17 | disposition home or self-care (01) ==
LOC: ED 07:35
DX: R10.9 Unspecified abdominal pain (principal); M54.42 Lumbago with sciatica, left side; I10 Essential (primary) hypertension; E11.9 Type 2 diabetes mellitus without complications; F31.9 Bipolar disorder, unspecified; F20.9 Schizophrenia, unspecified; F43.10 Post-traumatic stress disorder, unspecified; F17.200 Nicotine dependence, unspecified, uncomplicated; Z90.711 Acquired absence of uterus with remaining cervical stump; Z90.49 Acquired absence of other specified parts of digestive tract; Z91.013 Allergy to seafood
CPT/HCPCS: 36415; 74177; 82550; 83690; 93005; 93010; 96361; 96374; 96375; 99284; J1170; J1885; J7030; Q9967

== ENCOUNTER 2020-08-04 15:01 | Inpatient (IN) | payer MEDICARE ==
--- NOTE | 2020-08-04 15:34 | Emergency Department Report ---
ED N/V/D HPI - General Stated complaint: DKA/POSSIBLE GI BLEED Time Seen by Provider: 08/04/20 15:25 Source: patient, EMS - History of Present Illness Initial comments: 50-year-old female, history of diabetes, HTN, bipolar disorder, presents to ED with nausea and vomiting since this morning. Patient reports coffee ground emesis with some mild, diffuse abdominal pain. She denies any diarrhea, rectal bleeding or dark stools. She states over the last few days her glucose has been higher than usual and she has had decreased appetite. Patient states she takes glipizide daily and insulin as needed. Patient reports increased thirst over the last 2 weeks. She denies fever, cough. Denies any known contact with anyone who has tested positive for COVID-19. Patient states she is due to get her 2nd dose of the COVID-19 vaccine on tomorrow. MD complaint: nausea, vomiting -: This morning Description of Vomiting: coffee grounds Associated Abdominal Pain: Yes Location: diffuse Radiation: none Severity: mild Quality: cramping Consistency: constant Improves with: none Worsens with: none Associated Symptoms: loss of appetite, nausea/vomiting, weakness. denies: chest pain, cough, fever/chills, shortness of breath - Related Data Home Medications Medication Instructions Recorded Confirmed Last Taken lamoTRIgine [LaMICtal] 200 mg PO QDAY 09/24/15 12/02/16 12/01/16 metFORMIN [Glucophage] 1,000 mg PO BID 09/24/15 12/02/16 12/01/16 Sitagliptin Phosphate [Januvia] 100 mg PO DAILY 09/27/15 12/02/16 12/01/16 amLODIPine 10 mg PO DAILY 12/02/16 12/02/16 12/01/16 Previous Rx's Medication Instructions Recorded Last Taken Type Azithromycin [Zithromax Z-TERE] 250 mg PO DAILY #6 tablet 04/21/17 Unknown Rx Benzonatate [Tessalon Perle] 100 mg PO Q6H PRN #20 capsule 04/21/17 Unknown Rx Ondansetron [Zofran Odt] 4 mg PO Q8HR PRN #20 tab.rapdis 04/21/17 Unknown Rx Oseltamivir [Tamiflu] 75 mg PO BID #14 cap 04/21/17 Unknown Rx Cyclobenzaprine [Flexeril 10 MG 10 mg PO QHS #20 tablet 05/25/17 Unknown Rx TAB] Ondansetron [Zofran ODT TAB] 8 mg PO BID #20 tab.rapdis 05/25/17 Unknown Rx Acetaminophen [Tylenol Arthritis] 650 mg PO Q6HR PRN #30 tablet.er 10/04/17 Unknown Rx Ibuprofen [Motrin] 600 mg PO Q8H PRN #30 tablet 10/04/17 Unknown Rx Cyclobenzaprine [Flexeril 10 MG 10 mg PO TID PRN #12 tablet 10/28/17 Unknown Rx TAB] Ibuprofen [Motrin 800 MG tab] 800 mg PO Q8HR PRN #12 tablet 10/28/17 Unknown Rx Allergies Allergy/AdvReac Type Severity Reaction Status Date / Time shellfish derived Allergy Shortness Verified 08/04/20 15:30 of Breath ED Review of Systems ROS: Stated complaint: DKA/POSSIBLE GI BLEED Other details as noted in HPI Comment: All other systems reviewed and negative Constitutional: weakness. denies: chills, fever Respiratory: denies: cough, shortness of breath Cardiovascular: denies: chest pain Endocrine: increased thirst Gastrointestinal: abdominal pain, nausea, vomiting. denies: diarrhea, melena ED Past Medical Hx - Past Medical History Hx Hypertension: Yes Hx Heart Attack/AMI: No Hx Congestive Heart Failure: No Hx Diabetes: Yes Hx Deep Vein Thrombosis: No Hx Pulmonary Embolism: No Hx GERD: No Hx Liver Disease: No Hx Renal Disease: Yes Hx Headaches / Migraines: No Hx Seizures: No Hx Psychiatric Treatment: Yes (depression, bipolar, schizoaffective disorder, PTSD) Hx Asthma: No Hx COPD: No Hx Tuberculosis: No Hx Dementia: No - Surgical History Hx Coronary Stent: No Hx Pacemaker: No Hx Internal Defibrillator: No Hx Cholecystectomy: Yes Additional Surgical History: partial hysterectomy, hernia repair, bladder repair - Social History Smoking Status: Never Smoker Substance Use Type: None - Medications Home Medications: Home Medications Medication Instructions Recorded Confirmed Last Taken Type lamoTRIgine [LaMICtal] 200 mg PO QDAY 09/24/15 12/02/16 12/01/16 History metFORMIN [Glucophage] 1,000 mg PO BID 09/24/15 12/02/16 12/01/16 History Sitagliptin Phosphate [Januvia] 100 mg PO DAILY 09/27/15 12/02/16 12/01/16 History amLODIPine 10 mg PO DAILY 12/02/16 12/02/16 12/01/16 History Azithromycin [Zithromax Z-TERE] 250 mg PO DAILY #6 tablet 04/21/17 Unknown Rx Benzonatate [Tessalon Perle] 100 mg PO Q6H PRN #20 capsule 04/21/17 Unknown Rx Ondansetron [Zofran Odt] 4 mg PO Q8HR PRN #20 tab.rapdis 04/21/17 Unknown Rx Oseltamivir [Tamiflu] 75 mg PO BID #14 cap 04/21/17 Unknown Rx Cyclobenzaprine [Flexeril 10 MG 10 mg PO QHS #20 tablet 05/25/17 Unknown Rx TAB] Ondansetron [Zofran ODT TAB] 8 mg PO BID #20 tab.rapdis 05/25/17 Unknown Rx Acetaminophen [Tylenol Arthritis] 650 mg PO Q6HR PRN #30 tablet.er 10/04/17 Unknown Rx Ibuprofen [Motrin] 600 mg PO Q8H PRN #30 tablet 10/04/17 Unknown Rx Cyclobenzaprine [Flexeril 10 MG 10 mg PO TID PRN #12 tablet 10/28/17 Unknown Rx TAB] Ibuprofen [Motrin 800 MG tab] 800 mg PO Q8HR PRN #12 tablet 10/28/17 Unknown Rx ED Physical Exam - General General appearance: alert, in no apparent distress - Head Head exam: Present: atraumatic, normocephalic - Eye Eye exam: Present: normal appearance, EOMI - ENT ENT exam: Present: mucous membranes dry - Neck Neck exam: Present: normal inspection - Respiratory Respiratory exam: Present: normal lung sounds bilaterally. Absent: respiratory distress - Cardiovascular Cardiovascular Exam: Present: normal rhythm, tachycardia - GI/Abdominal GI/Abdominal exam: Present: soft. Absent: distended, tenderness - Rectal Rectal exam: Present: heme (-) stool - Extremities Exam Extremities exam: Present: normal inspection - Neurological Exam Neurological exam: Present: alert, oriented X3 - Psychiatric Psychiatric exam: Present: normal affect, normal mood - Skin Skin exam: Present: warm, dry, intact, normal color ED Course Vital Signs 08/04/20 08/04/20 08/04/20 15:30 16:01 17:01 Temperature 97.6 F Pulse Rate 121 H 111 H 107 H Respiratory 32 H 34 H 29 H Rate Blood Pressure 116/66 131/80 128/74 O2 Sat by Pulse 100 99 100 Oximetry ED Medical Decision Making - Lab Data Result diagrams: 08/04/20 15:31 08/04/20 16:53 - EKG Data -: EKG Interpreted by Me EKG shows normal: sinus rhythm, axis, intervals, QRS complexes, ST-T waves Rate: tachycardia (rate 107) - EKG Data Interpretation: no acute changes - Radiology Data Radiology results: report reviewed, image reviewed - Medical Decision Making 50-year-old female, history of diabetes, presents to ED in DKA. Patient reported some coffee-ground emesis prior to arrival. No emesis here in the ED. Rectal exam is guaiac negative. Patient has glucose of 566, with bicarb of 5 and anion gap of 38. Patient also showing some signs of acute renal failure with BUN and creatinine of 34 and 1.5. Potassium is 6.6. No EKG changes present on EKG. White count slightly elevated at 12. UA shows evidence of mild UTI. Urine culture sent, Rocephin given. DKA protocol was initiated with insulin drip and large volume fluid boluses. Hyperkalemia addressed with the insulin drip. Repeat potassium has already improved to 5.7 from 6.6. Glucose improved to 503. Vital signs are stable. Patient will be admitted by hospitalist, Dr. Ge, for further management. - Differential Diagnosis DKA, GI bleed, gastritis, infection Critical Care Time: Yes Critical care time in (mins) excluding proc time.: 35 Critical care attestation.: If time is entered above; I have spent that time in minutes in the direct care of this critically ill patient, excluding procedure time. Critical Care Time: 35 min ED Disposition Clinical Impression: DKA (diabetic ketoacidosis), Hyperkalemia, Acute renal failure, Gastritis Disposition: DC-[id number] OP ADMIT IP TO THIS HOSP Is pt being admited?: Yes Condition: Stable Instructions: Diabetic Ketoacidosis (ED) Referrals: JOSE RAFAEL ROSSI [Other] - 3-5 Days Time of Disposition: 16:48
[2020-08-04] MEDS ORDERED: SODIUM CHLORIDE 0.9% 1000 ML 1,000 ML IV ONE ×4 (15:36→16:44)
[2020-08-04] MEDS ORDERED: ONDANSETRON 4 MG/2 ML INJ IV ONE (15:36)
[2020-08-04 15:47] LABS: Bilirubin,Urine NEG (Negative); Blood,Urine LG (Negative); Color,Urine Yellow (Yellow); Mucus,Urine FEW /HPF; Urobilinogen,Urine < 2.0 mg/dL (<2.0)
[2020-08-04 15:48] LABS: Mean Corpuscular HGB Conc 30 % (30-34); Mean Corpuscular Volume 98 fl (79-97); Platelet Count 187 K/mm3 (140-440); Red Blood Count 5.19 M/mm3 (3.65-5.03); Red Cell Distribution Width 16.5 % (13.2-15.2)
--- NOTE | 2020-08-04 15:53 | XRay Report ---
CHEST 1 VIEW INDICATION / CLINICAL INFORMATION: weakness. FINDINGS: SUPPORT DEVICES: None. HEART / MEDIASTINUM: No significant abnormality. LUNGS / PLEURA: No significant pulmonary or pleural abnormality. No pneumothorax. ADDITIONAL FINDINGS: No significant additional findings. IMPRESSION: 1. No acute findings. Signer Name: Santos Graham MD Signed: 08/04/2020 3:49 PM Workstation Name: [id number]
[2020-08-04 16:00] LABS: INR 1.16 (0.87-1.13)
[2020-08-04 16:01] LABS: Partial Thromboplastin Time 28.1 Sec. (24.2-36.6)
[2020-08-04 16:23] LABS: Albumin 3.4 g/dL (3.9-5); Bilirubin,Direct 0.3 mg/dL (0-0.2); Calcium 8.9 mg/dL (8.4-10.2)
[2020-08-04] MEDS ORDERED: SODIUM BICARB 8.4% 50 MEQ/50 ML SYRINGE IV ONE ×2 (16:43→19:00)
[2020-08-04] MEDS ORDERED: PANTOPRAZOLE 40 MG INJ IV ONE (16:47)
[2020-08-04 16:53] LABS: Hemoglobin 15.1 gm/dl (10.1-14.3)
[2020-08-04 16:54] LABS: Hematocrit 50.7 % (30.3-42.9)
[2020-08-04] MEDS ORDERED: cefTRIAXone/NS 1 GM/50 ML 1 GM/50 ML BAG IV ONE (16:56)
[2020-08-04] MEDS ORDERED: ALBUTEROL 2.5 MG/3 ML NEBU IH PRN (17:01)
--- NOTE | 2020-08-04 17:01 | History and Physical Report ---
History of Present Illness Chief complaint: Im just sick History of present illness: 50 YO Female with HTN, DM, Migraine GARZA, Bipolar, Depression, Schizoaffective Disorder, PTSD, Nicotine Dependence presents to ED for evaluation. Pt reports "my blood sugar is high and I have been throwing up". Patient states that she has experienced nausea, multiple episodes of vomiting, abdominal discomfort, and elevated blood glucose levels, polydipsia, polyuria, polyphagia over the past 2 weeks with worsening symptoms over the past 2 days. EMS was notified and upon arrival the patient was found to be in distress and subsequently transported to [facility] for further care and evaluation of the aforementioned symptoms. The patient was seen and evaluated in the emergency department. All lab and imaging studies reviewed. Patient found to have diabetic ketoacidosis, systemic plantar response syndrome, metabolic acidosis, as well as acute kidney injury. Patient admitted to ICU and initiated on DKA protocol. Patient also treated with empiric IV antibiotic therapy x1 dose. Pt denies fever, chills, CP, Palpitations, fever, back pain, dysuria, unilateral leg swelling, calf pain, prolonged travel/immobility, individual/family history of DVT/PE/bleeding/blood clotting disorders, or known exposure to COVID-19. Prior admission on 12/03/2019 reviewed. All medication listed at time of admission has been reconciled. Past History Past Medical History: diabetes, hypertension, other (See HPI) Past Surgical History: cholecystectomy, hysterectomy, hernia repair, Other (Bladder repair) Social history: single. denies: smoking, alcohol abuse Family history: no significant family history Medications and Allergies Allergies Allergy/AdvReac Type Severity Reaction Status Date / Time shellfish derived Allergy Shortness Verified 08/04/20 15:30 of Breath Home Medications Medication Instructions Recorded Confirmed Last Taken Type lamoTRIgine [LaMICtal] 200 mg PO QDAY 09/24/15 12/02/16 12/01/16 History metFORMIN [Glucophage] 1,000 mg PO BID 09/24/15 12/02/16 12/01/16 History Sitagliptin Phosphate [Januvia] 100 mg PO DAILY 09/27/15 12/02/16 12/01/16 History amLODIPine 10 mg PO DAILY 12/02/16 12/02/16 12/01/16 History Azithromycin [Zithromax Z-TERE] 250 mg PO DAILY #6 tablet 04/21/17 Unknown Rx Benzonatate [Tessalon Perle] 100 mg PO Q6H PRN #20 capsule 04/21/17 Unknown Rx Ondansetron [Zofran Odt] 4 mg PO Q8HR PRN #20 tab.rapdis 04/21/17 Unknown Rx Oseltamivir [Tamiflu] 75 mg PO BID #14 cap 04/21/17 Unknown Rx Cyclobenzaprine [Flexeril 10 MG 10 mg PO QHS #20 tablet 05/25/17 Unknown Rx TAB] Ondansetron [Zofran ODT TAB] 8 mg PO BID #20 tab.rapdis 05/25/17 Unknown Rx Acetaminophen [Tylenol Arthritis] 650 mg PO Q6HR PRN #30 tablet.er 10/04/17 Unknown Rx Ibuprofen [Motrin] 600 mg PO Q8H PRN #30 tablet 10/04/17 Unknown Rx Cyclobenzaprine [Flexeril 10 MG 10 mg PO TID PRN #12 tablet 10/28/17 Unknown Rx TAB] Ibuprofen [Motrin 800 MG tab] 800 mg PO Q8HR PRN #12 tablet 10/28/17 Unknown Rx Active Meds: Active Medications Sodium Chloride (Nacl 0.9% 1000 Ml) 1,000 mls @ 999 mls/hr IV BOLUS ONE Stop: 08/04/20 17:43 Last Admin: 08/04/20 16:52 Dose: 999 mls/hr Documented by: Sodium Chloride (Nacl 0.9% 1000 Ml) 1,000 mls @ 999 mls/hr IV BOLUS ONE Stop: 08/04/20 17:43 Last Admin: 08/04/20 16:53 Dose: 999 mls/hr Documented by: Insulin Human Regular 100 (units/ Sodium Chloride) 100 mls @ 1 mls/hr IV TITR DAVID; Protocol Sodium Chloride (Nacl 0.9% 1000 Ml) 1,000 mls @ 999 mls/hr IV BOLUS ONE Stop: 08/04/20 17:44 Ceftriaxone Sodium (Rocephin/Ns 1 Gm/50 Ml) 1 gm in 50 mls @ 100 mls/hr IV ONCE ONE; Protocol Stop: 08/04/20 17:25 Review of Systems Constitutional: no weight loss, no weight gain, no chills Ears, nose, mouth and throat: no ear pain, no decreased hearing, no nose pain, no nasal discharge Breasts: no change in shape, no mass Cardiovascular: no chest pain, no orthopnea, no rapid/irregular heart beat, no edema, no syncope Respiratory: no cough, no hemoptysis, no shortness of breath, no dyspnea on exertion Gastrointestinal: no abdominal pain, no nausea, no vomiting, no diarrhea, no constipation, no change in bowel habits Genitourinary Female: no pelvic pain, no flank pain, no dysuria, no urinary frequency, no urgency Rectal: no pain, no incontinence Musculoskeletal: no neck stiffness, no neck pain, no shooting arm pain, no arm numbness/tingling, no low back pain Integumentary: no rash, no pruritis, no sores, no wounds Neurological: no head injury, no transient paralysis, no weakness, no parathesias Psychiatric: no anxiety, no change in sleep habits, no sleep disturbances, no hypersomnia, no suicidal ideation, no disorientation Endocrine: no cold intolerance, no heat intolerance, no polyphagia, no excessive thirst Hematologic/Lymphatic: no easy bruising, no easy bleeding Exam - Constitutional Vitals: Temp Pulse Resp BP Pulse Ox 97.6 F 111 H 34 H 131/80 99 08/04/20 15:30 08/04/20 16:01 08/04/20 16:01 08/04/20 16:01 08/04/20 16:01 General appearance: Present: mild distress - EENT Eyes: Present: PERRL ENT: hearing intact, clear oral mucosa - Neck Neck: Present: supple, normal ROM - Respiratory Respiratory effort: normal Respiratory: bilateral: CTA - Cardiovascular Heart Sounds: Present: S1 & S2. Absent: rub, click - Extremities Extremities: pulses symmetrical, No edema Peripheral Pulses: within normal limits - Abdominal General gastrointestinal: Present: soft, non-tender, non-distended, normal bowel sounds Female genitourinary: Present: normal - Integumentary Integumentary: Present: warm, dry, clammy, decreased turgor - Musculoskeletal Musculoskeletal: generalized weakness - Psychiatric Psychiatric: appropriate mood/affect, intact judgment & insight - Neurologic Neurologic: CNII-XII intact, moves all extremities Results - Labs CBC & Chem 7: 08/04/20 15:31 08/04/20 16:53 Labs: Abnormal lab results 08/04/20 08/04/20 08/04/20 Range/Units 15:27 15:31 15:31 WBC 12.0 H (4.5-11.0) K/mm3 RBC 5.19 H (3.65-5.03) M/mm3 Hgb 15.1 H (10.1-14.3) gm/dl Hct 50.7 H (30.3-42.9) % MCV 98 H (79-97) fl RDW 16.5 H (13.2-15.2) % INR (0.87-1.13) VBG pH (7.320-7.420) Sodium 132 L (137-145) mmol/L Potassium 6.6 H* (3.6-5.0) mmol/L Chloride 95.7 L (98-107) mmol/L Carbon Dioxide 5 L* (22-30) mmol/L BUN 34 H (7-17) mg/dL Creatinine 1.5 H (0.6-1.2) mg/dL Glucose 566 H* (65-100) mg/dL POC Glucose 559 H (70-105) mg/dL Direct Bilirubin 0.3 H (0-0.2) mg/dL Albumin 3.4 L (3.9-5) g/dL Lipase 131 H (13-60) units/L Urine WBC (Auto) (0.0-6.0) /HPF 08/04/20 08/04/20 08/04/20 Range/Units 15:31 15:31 15:32 WBC (4.5-11.0) K/mm3 RBC (3.65-5.03) M/mm3 Hgb (10.1-14.3) gm/dl Hct (30.3-42.9) % MCV (79-97) fl RDW (13.2-15.2) % INR 1.16 H (0.87-1.13) VBG pH 7.010 L* (7.320-7.420) Sodium (137-145) mmol/L Potassium (3.6-5.0) mmol/L Chloride (98-107) mmol/L Carbon Dioxide (22-30) mmol/L BUN (7-17) mg/dL Creatinine (0.6-1.2) mg/dL Glucose (65-100) mg/dL POC Glucose (70-105) mg/dL Direct Bilirubin (0-0.2) mg/dL Albumin (3.9-5) g/dL Lipase (13-60) units/L Urine WBC (Auto) 10.0 H (0.0-6.0) /HPF Assessment and Plan - Patient Problems (1) DKA (diabetic ketoacidosis) Current Visit: Yes Status: Acute Qualifiers: Diabetes mellitus type: type 1 Plan to address problem: DKA protocol: Insulin drip, IV fluid resuscitation therapy, serial BMP, monitor anion gap, monitor fluid balance, potassium repletion as per protocol. The high probability of a clinically significant, sudden or life threatening deterioration of the [endocrine, neuro, renal] system(s) required my full and direct attention, intervention and personal management. The aggregate critical care time was [65] minutes. This time is in addition to time spent performing reported procedures but includes the following: [x] Data Review and interpretation [x] Patient assessment and monitoring of vital signs [x] Documentation [x] Medication orders and management (2) MIMI (acute kidney injury) Current Visit: Yes Status: Acute Plan to address problem: IV fluid resuscitation therapy, monitor urine output every shift, repeat BMP in a.m., monitor serum creatinine as well as serum GFR. (3) SIRS (systemic inflammatory response syndrome) Current Visit: Yes Status: Acute Plan to address problem: CBC, CMP, chest x-ray, urinalysis, empiric IV antibiotic therapy x1 dose, repeat CBC in a.m. (4) Metabolic acidosis Current Visit: Yes Status: Acute Plan to address problem: IV fluid resuscitation therapy, repeat BMP in a.m., treat DKA. Supportive care, IV bicarbonate therapy. (5) DVT prophylaxis Current Visit: Yes Status: Acute Plan to address problem: SCD to bilateral lower extremities while in bed, prophylactic anticoagulation.
[2020-08-04] MEDS ORDERED: IBUPROFEN 600 MG TAB PO PRN (17:02)
[2020-08-04] MEDS ORDERED: BENZONATATE 100 MG CAP PO PRN (17:02)
[2020-08-04] MEDS ORDERED: ONDANSETRON 4 MG ODT TAB PO PRN (17:02)
[2020-08-04] MEDS ORDERED: SODIUM CHLORIDE 0.9% 1000 ML 3,000 ML IV ONE (17:05)
[2020-08-04] MEDS: INSULIN REGULAR, HUMAN 100 UNITS in SODIUM CHLORIDE 0.9% 99 ML IV SCH (17:08)
[2020-08-04] MEDS ORDERED: SODIUM CHLORIDE 0.9% 1000 ML 1,000 ML IV SCH (17:15)
[2020-08-04 17:37] LABS: Calcium 7.2 mg/dL (8.4-10.2)
[2020-08-04 18:14] LABS: RBC Morphology Normal; Total Cells Counted 100
[2020-08-04 19:22] LABS: Calcium 8.5 mg/dL (8.4-10.2)
[2020-08-04] MEDS: HEPARIN 5,000 UNIT/1 ML VIAL SUB-Q SCH (23:24)
[2020-08-04] MEDS ORDERED: D5W/0.45% NACL 1,000 ML IV SCH (23:45)
[2020-08-05 01:20] LABS: BUN/Creatinine Ratio 23; Blood Urea Nitrogen 25 mg/dL (7-17); Calcium 8.3 mg/dL (8.4-10.2); Hemolysis Index 10
[2020-08-05] MEDS ORDERED: D5W/0.45% NACL/KCL 20 MEQ 20 MEQ/1,000 ML BAG IV SCH (06:00)
--- NOTE | 2020-08-05 07:44 | Progress Note ---
<MICHELLE CURRYMarjan - Last Filed: 08/05/20 13:25> Assessment and Plan Assessment and plan: This is a 50-year-old female with HTN, DM, migraine headaches, bipolar, depression, PTSD, schizoaffective disorder, nicotine dependence admitted to the ICU with SIRS, diabetic ketoacidosis, acute kidney injury SIRS DKA COVID-19 PUI Leukocytosis Polycythemia Hyperkalemia (resolved) Metabolic acidosis Acute kidney injury secondary to vasomotor nephropathy Hyperglycemia Diabetes mellitus Hypertension Migraine headaches Bipolar Depression Schizoaffective disorder PTSD Nicotine dependence -CCM and Nutrition consulted, appreciate recommendations -COVID-19 PCR pending -Contact/droplet isolation -Insulin drip -Hemoglobin A1c pending -Transition to SSI when appropriate -N.p.o. for now, CC diet when appropriate -Continue home Lamictal -Hold home metformin, Januvia -Continue home amlodipine, titrate as needed -Trend BMP and CBC -Tobacco cessation education DVT/GI prophylaxis: PPI, heparin subcu, SCDs to bilateral lower extremity while in bed Disposition: ICU, possible transfer to floor The high probability of a clinically significant, sudden or life threatening deterioration of the [endo] system(s) required my full and direct attention, intervention and personal management. The aggregate critical care time was [35] minutes. This time is in addition to time spent performing reported procedures but includes the following: [x] Data Review and interpretation [x] Patient assessment and monitoring of vital signs [x] Documentation [x] Medication orders and management History Interval history: This is a 50-year-old female with HTN, DM, migraine headache, bipolar, depres cleo, schizoaffective disorder, PTSD and nicotine dependence who presents the emergency department on 08/04 with complaints of hyperglycemia, nausea and vomiting, abdominal discomfort, polydipsia, polyuria, polyphagia over the past 2 weeks with worsening symptoms over the past 2 days via EMS. Work-up in the emergency department revealed diabetic ketoacidosis, SIRS, metabolic acidosis and acute kidney injury. Patient was initiated DKA protocol, given empiric antibiotic x1 and admitted to the ICU with consult to CCM. 07/26: Patient remains on insulin drip and is alert and oriented to time examin ation on room air. COVID-19 PCR pending. BMP pending. Hospitalist Physical - Constitutional Vitals: Temp Pulse Resp BP Pulse Ox 98.0 F 86 23 104/74 97 08/05/20 04:00 08/05/20 07:32 08/05/20 07:32 08/05/20 07:32 08/05/20 07:32 General appearance: Present: no acute distress - EENT Eyes: Present: PERRL ENT: hearing intact, poor dentition - Neck Neck: Present: normal ROM - Respiratory Respiratory effort: normal Respiratory: bilateral: CTA - Cardiovascular Rhythm: regular Heart Sounds: Present: S1 & S2. Absent: systolic murmur, diastolic murmur - Extremities Extremities: no ischemia, pulses intact, pulses symmetrical, No edema, normal temperature, normal color, Full ROM Peripheral Pulses: within normal limits - Abdominal General gastrointestinal: soft, non-tender, non-distended, normal bowel sounds - Integumentary Integumentary: Present: warm, dry - Psychiatric Psychiatric: cooperative - Neurologic Neurologic: CNII-XII intact, no focal deficits, moves all extremities - Allied Health Allied health notes reviewed: nursing Results - Labs CBC & Chem 7: 08/04/20 15:31 08/05/20 00:07 Labs: Laboratory Last Values WBC 12.0 K/mm3 (4.5-11.0) H 08/04/20 15:31 RBC 5.19 M/mm3 (3.65-5.03) H 08/04/20 15:31 Hgb 15.1 gm/dl (10.1-14.3) H 08/04/20 15:31 Hct 50.7 % (30.3-42.9) H 08/04/20 15:31 MCV 98 fl (79-97) H 08/04/20 15:31 MCH 29 pg (28-32) 08/04/20 15:31 MCHC 30 % (30-34) 08/04/20 15:31 RDW 16.5 % (13.2-15.2) H 08/04/20 15:31 Plt Count 187 K/mm3 (140-440) 08/04/20 15:31 Add Manual Diff Complete 08/04/20 15:31 Total Counted 100 08/04/20 15:31 Seg Neuts % (Manual) 80.0 % (40.0-70.0) H 08/04/20 15:31 Lymphocytes % (Manual) 7.0 % (13.4-35.0) L 08/04/20 15:31 Monocytes % (Manual) 13.0 % (0.0-7.3) H 08/04/20 15:31 Nucleated RBC % Not Reportable 08/04/20 15:31 Seg Neutrophils # Man 9.6 K/mm3 (1.8-7.7) H 08/04/20 15:31 Band Neutrophils # 0.0 K/mm3 08/04/20 15:31 Lymphocytes # (Manual) 0.8 K/mm3 (1.2-5.4) L 08/04/20 15:31 Abs React Lymphs (Man) 0.0 K/mm3 08/04/20 15:31 Monocytes # (Manual) 1.6 K/mm3 (0.0-0.8) H 08/04/20 15:31 Eosinophils # (Manual) 0.0 K/mm3 (0.0-0.4) 08/04/20 15:31 Basophils # (Manual) 0.0 K/mm3 (0.0-0.1) 08/04/20 15:31 Metamyelocytes # 0.0 K/mm3 08/04/20 15:31 Myelocytes # 0.0 K/mm3 08/04/20 15:31 Promyelocytes # 0.0 K/mm3 08/04/20 15:31 Blast Cells # 0.0 K/mm3 08/04/20 15:31 WBC Morphology Not Reportable 08/04/20 15:31 Hypersegmented Neuts Not Reportable 08/04/20 15:31 Hyposegmented Neuts Not Reportable 08/04/20 15:31 Hypogranular Neuts Not Reportable 08/04/20 15:31 Smudge Cells Not Reportable 08/04/20 15:31 Toxic Granulation Not Reportable 08/04/20 15:31 Toxic Vacuolation Not Reportable 08/04/20 15:31 Dohle Bodies Not Reportable 08/04/20 15:31 Pelger-Huet Anomaly Not Reportable 08/04/20 15:31 Ml Rods Not Reportable 08/04/20 15:31 Platelet Estimate Not Reportable 08/04/20 15:31 Clumped Platelets Not Reportable 08/04/20 15:31 Plt Clumps, EDTA Not Reportable 08/04/20 15:31 Large Platelets Not Reportable 08/04/20 15:31 Giant Platelets Not Reportable 08/04/20 15:31 Platelet Satelliting Not Reportable 08/04/20 15:31 Plt Morphology Comment Not Reportable 08/04/20 15:31 RBC Morphology Normal 08/04/20 15:31 Dimorphic RBCs Not Reportable 08/04/20 15:31 Polychromasia Not Reportable 08/04/20 15:31 Hypochromasia Not Reportable 08/04/20 15:31 Poikilocytosis Not Reportable 08/04/20 15:31 Anisocytosis Not Reportable 08/04/20 15:31 Microcytosis Not Reportable 08/04/20 15:31 Macrocytosis Not Reportable 08/04/20 15:31 Spherocytes Not Reportable 08/04/20 15:31 Pappenheimer Bodies Not Reportable 08/04/20 15:31 Sickle Cells Not Reportable 08/04/20 15:31 Target Cells Not Reportable 08/04/20 15:31 Tear Drop Cells Not Reportable 08/04/20 15:31 Ovalocytes Not Reportable 08/04/20 15:31 Helmet Cells Not Reportable 08/04/20 15:31 [place] Bodies Not Reportable 08/04/20 15:31 [place] Rings Not Reportable 08/04/20 15:31 [place] Cells Not Reportable 08/04/20 15:31 Bite Cells Not Reportable 08/04/20 15:31 Crenated Cell Not Reportable 08/04/20 15:31 Elliptocytes Not Reportable 08/04/20 15:31 Acanthocytes (Spur) Not Reportable 08/04/20 15:31 Rouleaux Not Reportable 08/04/20 15:31 Hemoglobin C Crystals Not Reportable 08/04/20 15:31 Schistocytes Not Reportable 08/04/20 15:31 Malaria parasites Not Reportable 08/04/20 15:31 Eriberto Bodies Not Reportable 08/04/20 15:31 Hem Pathologist Commnt No 08/04/20 15:31 PT 14.8 Sec. (12.2-14.9) 08/04/20 15:31 INR 1.16 (0.87-1.13) H 08/04/20 15:31 APTT 28.1 Sec. (24.2-36.6) 08/04/20 15:31 VBG pH 7.010 (7.320-7.420) L* 08/04/20 15:31 Sodium 140 mmol/L (137-145) 08/05/20 00:07 Potassium 4.6 mmol/L (3.6-5.0) 08/05/20 00:07 Chloride 108.3 mmol/L (98-107) H 08/05/20 00:07 Carbon Dioxide 11 mmol/L (22-30) L 08/05/20 00:07 Anion Gap 25 mmol/L 08/05/20 00:07 BUN 25 mg/dL (7-17) H 08/05/20 00:07 Creatinine 1.1 mg/dL (0.6-1.2) 08/05/20 00:07 Estimated GFR > 60 ml/min 08/05/20 00:07 BUN/Creatinine Ratio 23 % 08/05/20 00:07 Glucose 205 mg/dL (65-100) H 08/05/20 00:07 POC Glucose 201 mg/dL (70-105) H 08/05/20 06:03 Ketones Quantitative Small (Negative) 08/04/20 15:31 Calcium 8.3 mg/dL (8.4-10.2) L 08/05/20 00:07 Phosphorus 4.30 mg/dL (2.5-4.5) 08/04/20 16:53 Magnesium 1.90 mg/dL (1.7-2.3) 08/04/20 16:53 Total Bilirubin 0.40 mg/dL (0.1-1.2) 08/04/20 15:31 Direct Bilirubin 0.3 mg/dL (0-0.2) H 08/04/20 15:31 Indirect Bilirubin 0.1 mg/dL 08/04/20 15:31 AST 15 units/L (5-40) 08/04/20 15:31 ALT 11 units/L (7-56) 08/04/20 15:31 Alkaline Phosphatase 120 units/L (35-129) 08/04/20 15:31 Total Protein 7.1 g/dL (6.3-8.2) 08/04/20 15:31 Albumin 3.4 g/dL (3.9-5) L 08/04/20 15:31 Albumin/Globulin Ratio 0.9 % 08/04/20 15:31 Lipase 131 units/L (13-60) H 08/04/20 15:31 Urine Color Yellow (Yellow) 08/04/20 15:32 Urine Turbidity Slightly-cloudy (Clear) 08/04/20 15:32 Urine pH 5.0 (5.0-7.0) 08/04/20 15:32 Ur Specific [place] 1.021 (1.003-1.030) 08/04/20 15:32 Urine Protein 100 mg/dl mg/dL (Negative) 08/04/20 15:32 Urine Glucose (UA) >=500 mg/dL (Negative) 08/04/20 15: Urine Ketones 80 mg/dL (Negative) 08/04/20 15:32 Urine Blood Lg (Negative) 08/04/20 15:32 Urine Nitrite Neg (Negative) 08/04/20 15:32 Urine Bilirubin Neg (Negative) 08/04/20 15:32 Urine Urobilinogen < 2.0 mg/dL (<2.0) 08/04/20 15:32 Ur Leukocyte Esterase Neg (Negative) 08/04/20 15:32 Urine WBC (Auto) 10.0 /HPF (0.0-6.0) H 08/04/20 15:32 Urine RBC (Auto) 31.0 /HPF (0.0-6.0) 08/04/20 15:32 U Epithel Cells (Auto) 6.0 /HPF (0-13.0) 08/04/20 15:32 Urine Mucus Few /HPF 08/04/20 15:32 Urine Yeast (Budding) Few /HPF 08/04/20 15:32 Wiley/IV: Voiding Method Toilet Active Medications - Current Medications Current Medications: Generic Name Dose Route Start Last Admin Trade Name Freq PRN Reason Stop Dose Admin Albuterol 2.5 mg 08/04/20 17:01 Albuterol 2.5 Mg/3 Ml Nebu IH Q3H PRN Shortness Of Breath Amlodipine Besylate 5 mg 08/05/20 10:00 Amlodipine 10 Mg Tab PO DAILY DAVID Benzonatate 100 mg 08/04/20 17:02 Benzonatate 100 Mg Cap PO Q6H PRN Cough Heparin Sodium (Porcine) 5,000 unit 08/04/20 22:00 08/04/20 23:24 Heparin 5,000 Unit/1 Ml Vial SUB-Q Not Given Q12HR DAVID Insulin Human Regular 100 100 mls @ 1 mls/hr 08/04/20 17:00 08/05/20 07:21 units/ Sodium Chloride IV 8 units/hr TITR DAVID 8 mls/hr Titration Protocol 1 UNITS/HR Sodium Chloride 1,000 mls @ 150 mls/hr 08/04/20 17:15 Nacl 0.9% 1000 Ml IV DIRECT DAVID Potassium Chloride/Dextrose/Sod Cl 20 meq in 1,000 mls @ 125 mls/hr 08/05/20 06:00 08/05/20 06:38 D5w/0.45% Nacl/Kcl 20 Meq IV 125 mls/hr DIRECT DAVID Administration Ibuprofen 600 mg 08/04/20 17:02 Ibuprofen 600 Mg Tab PO Q8H PRN PAIN Lamotrigine 200 mg 08/05/20 10:00 Lamotrigine 100 Mg Tab PO QDAY DAVID Ondansetron HCl 4 mg 08/04/20 17:02 Ondansetron 4 Mg Odt Tab PO Q8H PRN Nausea Sodium Chloride 10 ml 08/04/20 22:00 08/04/20 22:47 Sodium Chloride 0.9% 10 Ml Flush Syringe IV 10 ml BID DAVID Administration Sodium Chloride 10 ml 08/04/20 17:01 Sodium Chloride 0.9% 10 Ml Flush Syringe IV PRN PRN LINE FLUSH <OLIVE ALAN - Last Filed: 08/09/20 10:51> Assessment and Plan Assessment and plan: I saw and evaluated the patient. I agree with the findings and the plan of care as documented in the Nurse Practitioner's~note, with the following corrections and additions. Hospitalist Physical - Constitutional Vitals: Temp Pulse Resp BP Pulse Ox 99.0 F 83 18 99/62 99 08/06/20 04:03 08/06/20 09:19 08/06/20 10:00 08/06/20 09:19 08/06/20 04:03 Results - Labs CBC & Chem 7: 08/06/20 07:36 08/06/20 07:36 Labs: Laboratory Last Values WBC 6.0 K/mm3 (4.5-11.0) 08/06/20 07:36 RBC 4.36 M/mm3 (3.65-5.03) 08/06/20 07:36 Hgb 12.6 gm/dl (10.1-14.3) 08/06/20 07:36 Hct 37.2 % (30.3-42.9) D 08/06/20 07:36 MCV 85 fl (79-97) 08/06/20 07:36 MCH 29 pg (28-32) 08/06/20 07:36 MCHC 34 % (30-34) 08/06/20 07:36 RDW 14.5 % (13.2-15.2) 08/06/20 07:36 Plt Count 132 K/mm3 (140-440) L 08/06/20 07:36 Add Manual Diff Complete 08/05/20 15:39 Total Counted 100 08/05/20 15:39 Seg Neuts % (Manual) 72.0 % (40.0-70.0) H 08/05/20 15:39 Band Neutrophils % 3.0 % 08/05/20 15:39 Lymphocytes % (Manual) 14.0 % (13.4-35.0) 08/05/20 15:39 Monocytes % (Manual) 10.0 % (0.0-7.3) H 08/05/20 15:39 Eosinophils % (Manual) 1.0 % (0.0-4.3) 08/05/20 15:39 Nucleated RBC % Not Reportable 08/05/20 15:39 Seg Neutrophils # Man 6.5 K/mm3 (1.8-7.7) 08/05/20 15:39 Band Neutrophils # 0.3 K/mm3 08/05/20 15:39 Lymphocytes # (Manual) 1.3 K/mm3 (1.2-5.4) 08/05/20 15:39 Abs React Lymphs (Man) 0.0 K/mm3 08/05/20 15:39 Monocytes # (Manual) 0.9 K/mm3 (0.0-0.8) H 08/05/20 15:39 Eosinophils # (Manual) 0.1 K/mm3 (0.0-0.4) 08/05/20 15:39 Basophils # (Manual) 0.0 K/mm3 (0.0-0.1) 08/05/20 15:39 Metamyelocytes # 0.0 K/mm3 08/05/20 15:39 Myelocytes # 0.0 K/mm3 08/05/20 15:39 Promyelocytes # 0.0 K/mm3 08/05/20 15:39 Blast Cells # 0.0 K/mm3 08/05/20 15:39 WBC Morphology Not Reportable 08/05/20 15:39 Hypersegmented Neuts Not Reportable 08/05/20 15:39 Hyposegmented Neuts Not Reportable 08/05/20 15:39 Hypogranular Neuts Not Reportable 08/05/20 15:39 Smudge Cells Not Reportable 08/05/20 15:39 Toxic Granulation Not Reportable 08/05/20 15:39 Toxic Vacuolation Not Reportable 08/05/20 15:39 Dohle Bodies Not Reportable 08/05/20 15:39 Pelger-Huet Anomaly Not Reportable 08/05/20 15:39 Ml Rods Not Reportable 08/05/20 15:39 Platelet Estimate Consistent w auto 08/05/20 15:39 Clumped Platelets Not Reportable 08/05/20 15:39 Plt Clumps, EDTA Not Reportable 08/05/20 15:39 Large Platelets Not Reportable 08/05/20 15:39 Giant Platelets Not Reportable 08/05/20 15:39 Platelet Satelliting Not Reportable 08/05/20 15:39 Plt Morphology Comment Not Reportable 08/05/20 15:39 RBC Morphology Normal 08/05/20 15:39 Dimorphic RBCs Not Reportable 08/05/20 15:39 Polychromasia Not Reportable 08/05/20 15:39 Hypochromasia Not Reportable 08/05/20 15:39 Poikilocytosis Not Reportable 08/05/20 15:39 Anisocytosis Not Reportable 08/05/20 15:39 Microcytosis Not Reportable 08/05/20 15:39 Macrocytosis Not Reportable 08/05/20 15:39 Spherocytes Not Reportable 08/05/20 15:39 Pappenheimer Bodies Not Reportable 08/05/20 15:39 Sickle Cells Not Reportable 08/05/20 15:39 Target Cells Not Reportable 08/05/20 15:39 Tear Drop Cells Not Reportable 08/05/20 15:39 Ovalocytes Not Reportable 08/05/20 15:39 Helmet Cells Not Reportable 08/05/20 15:39 [place] Bodies Not Reportable 08/05/20 15:39 [place] Rings Not Reportable 08/05/20 15:39 [place] Cells Not Reportable 08/05/20 15:39 Bite Cells Not Reportable 08/05/20 15:39 Crenated Cell Not Reportable 08/05/20 15:39 Elliptocytes Not Reportable 08/05/20 15:39 Acanthocytes (Spur) Not Reportable 08/05/20 15:39 Rouleaux Not Reportable 08/05/20 15:39 Hemoglobin C Crystals Not Reportable 08/05/20 15:39 Schistocytes Not Reportable 08/05/20 15:39 Malaria parasites Not Reportable 08/05/20 15:39 Eriberto Bodies Not Reportable 08/05/20 15:39 Hem Pathologist Commnt No 08/05/20 15:39 PT 14.8 Sec. (12.2-14.9) 08/04/20 15:31 INR 1.16 (0.87-1.13) H 08/04/20 15:31 APTT 28.1 Sec. (24.2-36.6) 08/04/20 15:31 VBG pH 7.010 (7.320-7.420) L* 08/04/20 15:31 Sodium 135 mmol/L (137-145) L 08/06/20 07:36 Potassium 3.4 mmol/L (3.6-5.0) L 08/06/20 07:36 Chloride 104.8 mmol/L (98-107) 08/06/20 07:36 Carbon Dioxide 17 mmol/L (22-30) L 08/06/20 07:36 Anion Gap 17 mmol/L 08/06/20 07:36 BUN 14 mg/dL (7-17) 08/06/20 07:36 Creatinine 0.8 mg/dL (0.6-1.2) 08/06/20 07:36 Estimated GFR > 60 ml/min 08/06/20 07:36 BUN/Creatinine Ratio 18 % 08/06/20 07:36 Glucose 317 mg/dL (65-100) H 08/06/20 07:36 POC Glucose 336 mg/dL (70-105) H 08/06/20 11:04 Hemoglobin A1c 12.4 % (4-6) H 08/05/20 15:39 Ketones Quantitative Small (Negative) 08/04/20 15:31 Calcium 8.6 mg/dL (8.4-10.2) 08/06/20 07:36 Phosphorus 4.30 mg/dL (2.5-4.5) 08/04/20 16:53 Magnesium 1.90 mg/dL (1.7-2.3) 08/04/20 16:53 Total Bilirubin 0.40 mg/dL (0.1-1.2) 08/04/20 15:31 Direct Bilirubin 0.3 mg/dL (0-0.2) H 08/04/20 15:31 Indirect Bilirubin 0.1 mg/dL 08/04/20 15:31 AST 15 units/L (5-40) 08/04/20 15:31 ALT 11 units/L (7-56) 08/04/20 15:31 Alkaline Phosphatase 120 units/L (35-129) 08/04/20 15:31 Total Protein 7.1 g/dL (6.3-8.2) 08/04/20 15:31 Albumin 3.4 g/dL (3.9-5) L 08/04/20 15:31 Albumin/Globulin Ratio 0.9 % 08/04/20 15:31 Lipase 131 units/L (13-60) H 08/04/20 15:31 Urine Color Yellow (Yellow) 08/04/20 15:32 Urine Turbidity Slightly-cloudy (Clear) 08/04/20 15:32 Urine pH 5.0 (5.0-7.0) 08/04/20 15:32 Ur Specific [place] 1.021 (1.003-1.030) 08/04/20 15:32 Urine Protein 100 mg/dl mg/dL (Negative) 08/04/20 15:32 Urine Glucose (UA) >=500 mg/dL (Negative) 08/04/20 15:32 Urine Ketones 80 mg/dL (Negative) 08/04/20 15:32 Urine Blood Lg (Negative) 08/04/20 15:32 Urine Nitrite Neg (Negative) 08/04/20 15:32 Urine Bilirubin Neg (Negative) 08/04/20 15:32 Urine Urobilinogen < 2.0 mg/dL (<2.0) 08/04/20 15:32 Ur Leukocyte Esterase Neg (Negative) 08/04/20 15:32 Urine WBC (Auto) 10.0 /HPF (0.0-6.0) H 08/04/20 15:32 Urine RBC (Auto) 31.0 /HPF (0.0-6.0) 08/04/20 15:32 U Epithel Cells (Auto) 6.0 /HPF (0-13.0) 08/04/20 15:32 Urine Mucus Few /HPF 08/04/20 15:32 Urine Yeast (Budding) Few /HPF 08/04/20 15:32 Coronavirus (PCR) Negative (Negative) 08/05/20 Unknown Wiley/IV: Voiding Method Toilet Nutrition/Malnutrition Assess - Dietary Evaluation Nutrition/Malnutrition Findings: Nutrition Notes Start: 08/06/20 14:11 Freq: Status: Discharge Protocol: Document 08/06/20 14:11 AL (Rec: 08/06/20 14:14 AL [id number]) Co-Sign 08/06/20 14:11 LP Nutrition Notes Need for Assessment generated from: MD Order,Education Initial or Follow up Brief Note Current Diagnosis Acute Kidney Injury,Diabetes, Hypertension Other Pertinent Diagnosis DKA, SIRS, nicotene dependence . Current Diet Consistent CHO Subjective/Other Information MD consult for diet education. Pt wanted tips on lower sugar beverage options. Education provided. Pt tolerates current diet at 100%. Diet education well recieved. Per chart, pt may be discharged today. Current % PO Good (75-100%) #1 Nutrition Diagnosis Food and nutrition-related knowledge deficit Etiology DKA As Evidenced by Signs and Symptoms Pt requested diet education and low-sugar beverage tips. Nutrition Intervention Teaching Recipient Patient Learning Readiness Good Teaching Methods Discussion,Handout Response to Teaching Return demonstration Education Handouts Provided Carb Counting for People with Diabetes. Barriers to Learning No Barriers RD phone number provided Yes Patient aware of follow up options Yes Anticipated Discharge Needs: Consistent CHO diet. Revisit per MD consult or patient Sign Off request:
[2020-08-05] MEDS: INSULIN REGULAR, HUMAN 100 UNITS in SODIUM CHLORIDE 0.9% 99 ML IV SCH (08:34)
[2020-08-05] MEDS: HEPARIN 5,000 UNIT/1 ML VIAL SUB-Q SCH ×2 (09:27→22:18)
[2020-08-05] MEDS: amLODIPine 10 MG TAB PO SCH (09:28)
[2020-08-05] MEDS ORDERED: amLODIPine 10 MG TAB PO SCH (10:00)
[2020-08-05] MEDS ORDERED: NON-FORMULARY EACH (Lamotrigine [Lamictal] 200 MG Tablet) PO SCH (10:00)
[2020-08-05] MEDS: lamoTRIgine 100 MG TAB PO SCH (10:16)
[2020-08-05] MEDS ORDERED: ACETAMINOPHEN 325 MG TAB PO PRN (13:22)
--- NOTE | 2020-08-05 14:54 | Consultation ---
History of Present Illness Consult date: 08/05/20 Requesting physician: MILADY HANSEN Reason for consult: other (DKA) History of present illness: PULMONARY/CCM CONSULT NOTE (Full dictation # [id number]) Please see dictated notes for full details Past History Past Medical History: diabetes, hypertension, other (See HPI) Past Surgical History: cholecystectomy, hysterectomy, hernia repair, Other (Bladder repair) Social history: single. denies: smoking, alcohol abuse Family history: no significant family history Medications and Allergies Allergies Allergy/AdvReac Type Severity Reaction Status Date / Time shellfish derived Allergy Shortness Verified 08/04/20 15:30 of Breath Home Medications Medication Instructions Recorded Confirmed Last Taken Type lamoTRIgine [LaMICtal] 200 mg PO QDAY 09/24/15 12/02/16 12/01/16 History metFORMIN [Glucophage] 1,000 mg PO BID 09/24/15 12/02/16 12/01/16 History Sitagliptin Phosphate [Januvia] 100 mg PO DAILY 09/27/15 12/02/16 12/01/16 History amLODIPine 10 mg PO DAILY 12/02/16 12/02/16 12/01/16 History Azithromycin [Zithromax Z-TERE] 250 mg PO DAILY #6 tablet 04/21/17 Unknown Rx Benzonatate [Tessalon Perle] 100 mg PO Q6H PRN #20 capsule 04/21/17 Unknown Rx Ondansetron [Zofran Odt] 4 mg PO Q8HR PRN #20 tab.rapdis 04/21/17 Unknown Rx Oseltamivir [Tamiflu] 75 mg PO BID #14 cap 04/21/17 Unknown Rx Cyclobenzaprine [Flexeril 10 MG 10 mg PO QHS #20 tablet 05/25/17 Unknown Rx TAB] Ondansetron [Zofran ODT TAB] 8 mg PO BID #20 tab.rapdis 05/25/17 Unknown Rx Acetaminophen [Tylenol Arthritis] 650 mg PO Q6HR PRN #30 tablet.er 10/04/17 Unknown Rx Ibuprofen [Motrin] 600 mg PO Q8H PRN #30 tablet 10/04/17 Unknown Rx Cyclobenzaprine [Flexeril 10 MG 10 mg PO TID PRN #12 tablet 10/28/17 Unknown Rx TAB] Ibuprofen [Motrin 800 MG tab] 800 mg PO Q8HR PRN #12 tablet 10/28/17 Unknown Rx Active Meds: Active Medications Albuterol (Albuterol 2.5 Mg/3 Ml Nebu) 2.5 mg IH Q3H PRN PRN Reason: Shortness Of Breath Amlodipine Besylate (Amlodipine 10 Mg Tab) 5 mg PO DAILY [facility] Last Admin: 08/05/20 09:28 Dose: Not Given Documented by: Benzonatate (Benzonatate 100 Mg Cap) 100 mg PO Q6H PRN PRN Reason: Cough Heparin Sodium (Porcine) (Heparin 5,000 Unit/1 Ml Vial) 5,000 unit SUB-Q Q12HR [facility] Last Admin: 08/05/20 09:27 Dose: 5,000 unit Documented by: Insulin Human Regular 100 (units/ Sodium Chloride) 100 mls @ 1 mls/hr IV TITR DAVID; Protocol Last Titration: 08/05/20 11:14 Dose: 8 units/hr, 8 mls/hr Documented by: Sodium Chloride (Nacl 0.9% 1000 Ml) 1,000 mls @ 150 mls/hr IV DIRECT DAVID Potassium Chloride/Dextrose/Sod Cl (D5w/0.45% Nacl/Kcl 20 Meq) 20 meq in 1,000 mls @ 125 mls/hr IV DIRECT DAVID Last Admin: 08/05/20 06:38 Dose: 125 mls/hr Documented by: Ibuprofen (Ibuprofen 600 Mg Tab) 600 mg PO Q8H PRN PRN Reason: PAIN Lamotrigine (Lamotrigine 100 Mg Tab) 200 mg PO QDAY [facility] Last Admin: 08/05/20 10:16 Dose: 200 mg Documented by: Ondansetron HCl (Ondansetron 4 Mg Odt Tab) 4 mg PO Q8H PRN PRN Reason: Nausea Sodium Chloride (Sodium Chloride 0.9% 10 Ml Flush Syringe) 10 ml IV BID [facility] Last Admin: 08/05/20 09:30 Dose: 10 ml Documented by: Sodium Chloride (Sodium Chloride 0.9% 10 Ml Flush Syringe) 10 ml IV PRN PRN PRN Reason: LINE FLUSH Physical Examination Vital signs: Vital Signs Temp Pulse Resp BP Pulse Ox 97.6 F 121 H 32 H 116/66 100 08/04/20 15:30 08/04/20 15:30 08/04/20 15:30 08/04/20 15:30 08/04/20 15:30 Results - Laboratory Findings CBC and BMP: 08/04/20 15:31 08/05/20 00:07 PT/INR, D-dimer PT 14.8 Sec. (12.2-14.9) 08/04/20 15:31 INR 1.16 (0.87-1.13) H 08/04/20 15:31 Abnormal lab findings: Abnormal Labs 08/04/20 08/04/20 08/04/20 15:27 15:31 15:31 WBC 12.0 H RBC 5.19 H Hgb 15.1 H Hct 50.7 H MCV 98 H RDW 16.5 H Seg Neuts % (Manual) 80.0 H Lymphocytes % (Manual) 7.0 L Monocytes % (Manual) 13.0 H Seg Neutrophils # Man 9.6 H Lymphocytes # (Manual) 0.8 L Monocytes # (Manual) 1.6 H INR VBG pH Sodium 132 L Potassium 6.6 H* Chloride 95.7 L Carbon Dioxide 5 L* BUN 34 H Creatinine 1.5 H Glucose 566 H* POC Glucose 559 H Calcium Direct Bilirubin 0.3 H Albumin 3.4 L Lipase 131 H Urine WBC (Auto) 08/04/20 08/04/20 08/04/20 15:31 15:31 15:32 WBC RBC Hgb Hct MCV RDW Seg Neuts % (Manual) Lymphocytes % (Manual) Monocytes % (Manual) Seg Neutrophils # Man Lymphocytes # (Manual) Monocytes # (Manual) INR 1.16 H VBG pH 7.010 L* Sodium Potassium Chloride Carbon Dioxide BUN Creatinine Glucose POC Glucose Calcium Direct Bilirubin Albumin Lipase Urine WBC (Auto) 10.0 H 08/04/20 08/04/20 08/04/20 16:53 17:07 18:13 WBC RBC Hgb Hct MCV RDW Seg Neuts % (Manual) Lymphocytes % (Manual) Monocytes % (Manual) Seg Neutrophils # Man Lymphocytes # (Manual) Monocytes # (Manual) INR VBG pH Sodium Potassium 5.7 H Chloride Carbon Dioxide 12 L D BUN 31 H Creatinine Glucose 516 H* POC Glucose 503 H 430 H Calcium 7.2 L D Direct Bilirubin Albumin Lipase Urine WBC (Auto) 08/04/20 08/04/20 08/04/20 18:36 19:13 20:31 WBC RBC Hgb Hct MCV RDW Seg Neuts % (Manual) Lymphocytes % (Manual) Monocytes % (Manual) Seg Neutrophils # Man Lymphocytes # (Manual) Monocytes # (Manual) INR VBG pH Sodium 135 L Potassium 6.2 H* 5.7 H Chloride Carbon Dioxide 5 L* D 6 L* BUN 30 H 30 H Creatinine 1.3 H 1.3 H Glucose 477 H 371 H POC Glucose 449 H Calcium 8.0 L Direct Bilirubin Albumin Lipase Urine WBC (Auto) 08/04/20 08/04/20 08/04/20 21:19 22:37 23:21 WBC RBC Hgb Hct MCV RDW Seg Neuts % (Manual) Lymphocytes % (Manual) Monocytes % (Manual) Seg Neutrophils # Man Lymphocytes # (Manual) Monocytes # (Manual) INR VBG pH Sodium Potassium Chloride Carbon Dioxide BUN Creatinine Glucose POC Glucose 287 H 247 H 197 H Calcium Direct Bilirubin Albumin Lipase Urine WBC (Auto) 08/05/20 08/05/20 08/05/20 00:07 00:29 02:15 WBC RBC Hgb Hct MCV RDW Seg Neuts % (Manual) Lymphocytes % (Manual) Monocytes % (Manual) Seg Neutrophils # Man Lymphocytes # (Manual) Monocytes # (Manual) INR VBG pH Sodium Potassium Chloride 108.3 H Carbon Dioxide 11 L BUN 25 H Creatinine Glucose 205 H POC Glucose 183 H 219 H Calcium 8.3 L Direct Bilirubin Albumin Lipase Urine WBC (Auto) 08/05/20 08/05/20 08/05/20 03:07 04:04 05:10 WBC RBC Hgb Hct MCV RDW Seg Neuts % (Manual) Lymphocytes % (Manual) Monocytes % (Manual) Seg Neutrophils # Man Lymphocytes # (Manual) Monocytes # (Manual) INR VBG pH Sodium Potassium Chloride Carbon Dioxide BUN Creatinine Glucose POC Glucose 177 H 227 H 196 H Calcium Direct Bilirubin Albumin Lipase Urine WBC (Auto) 08/05/20 08/05/20 08/05/20 06:03 07:23 08:05 WBC RBC Hgb Hct MCV RDW Seg Neuts % (Manual) Lymphocytes % (Manual) Monocytes % (Manual) Seg Neutrophils # Man Lymphocytes # (Manual) Monocytes # (Manual) INR VBG pH Sodium Potassium Chloride Carbon Dioxide BUN Creatinine Glucose POC Glucose 201 H 189 H 154 H Calcium Direct Bilirubin Albumin Lipase Urine WBC (Auto) 08/05/20 08/05/20 08/05/20 09:22 10:23 11:08 WBC RBC Hgb Hct MCV RDW Seg Neuts % (Manual) Lymphocytes % (Manual) Monocytes % (Manual) Seg Neutrophils # Man Lymphocytes # (Manual) Monocytes # (Manual) INR VBG pH Sodium Potassium Chloride Carbon Dioxide BUN Creatinine Glucose POC Glucose 174 H 186 H 154 H Calcium Direct Bilirubin Albumin Lipase Urine WBC (Auto)
[2020-08-05 16:34] LABS: Hematocrit 43.8 % (30.3-42.9); Hemoglobin 14.4 gm/dl (10.1-14.3); Mean Corpuscular HGB Conc 33 % (30-34); Mean Corpuscular Volume 87 fl (79-97); Red Blood Count 5.05 M/mm3 (3.65-5.03); Red Cell Distribution Width 14.5 % (13.2-15.2)
[2020-08-05 16:44] LABS: Platelet Count 153 K/mm3 (140-440)
[2020-08-05 16:49] LABS: BUN/Creatinine Ratio 18; Blood Urea Nitrogen 16 mg/dL (7-17); Calcium 8.4 mg/dL (8.4-10.2); Hemolysis Index 26
[2020-08-05] MEDS ORDERED: LACTATED RINGERS 1,000 ML IV ONE (17:21)
[2020-08-05] MEDS ORDERED: DEXTROSE 50% IN WATER (25GM) 50 ML SYRINGE IV PRN (17:30)
[2020-08-05] MEDS ORDERED: INSULIN GLARGINE 100 UNITS/ML SUB-Q NR (17:30)
[2020-08-05 18:02] LABS: Band Neutrophils # (Manual) 0.3 K/mm3; Total Cells Counted 100
[2020-08-05 18:03] LABS: Platelet Estimate Consistent w Auto; RBC Morphology Normal
[2020-08-05] MEDS ORDERED: FAMOTIDINE 20 MG TAB PO SCH (22:00)
[2020-08-05] MEDS: INSULIN LISPRO 100 UNIT/ML SUB-Q SCH (22:19)
--- NOTE | 2020-08-06 03:04 | Consultation ---
DATE OF CONSULTATION: 08/05/2020 PULMONARY CRITICAL CARE CONSULT NOTE CONSULTING PHYSICIAN: Dr. Art Ge. REASON FOR CONSULTATION: Diabetic ketoacidosis, acute encephalopathy. CHIEF COMPLAINT AND HISTORY OF PRESENT ILLNESS: As follows. The patient is a 50-year-old female, obese, with a history of diabetes, but also bipolar disorder who presented to the emergency room yesterday complaining of nausea and vomiting had been going on since morning. She also complained of some coffee-ground emesis and diffuse abdominal pain. She denied diarrhea. She denies hematochezia. She denied melena. She mentioned that her blood sugars have been increased in the preceding few days despite decreased appetite. She takes glipizide and insulin as needed and denied run out of her medications. She denies any known contacts with anyone positive for COVID-19 infection. She was evaluated in the emergency room, ultimately diagnosed with diabetic ketoacidosis. Rectal guaiac exam was negative in the emergency room and she was admitted to the intensive care unit with diabetic ketoacidosis and IV insulin drip. When I stopped by to see her, she was resting in bed, still with significant encephalopathy, somnolent to lethargic is the way to describe her. She denied chest pain, though she has had nausea and vomiting was a little bit better. The abdominal pain was better. She was on IV insulin drip, still going at 4 units per hour at that time. When asked about tobacco use/abuse history, she denied tobacco use history. Really as much of the history of presentation as I have. PAST MEDICAL HISTORY: Again, significant for diabetes, hypertension, bipolar disorder. She is obese. PAST SURGICAL HISTORY: She has had a cholecystectomy. She has had a partial hysterectomy. She has had a hernia repair and bladder repair. MEDICATIONS: She was on at the time I stopped by to see were reviewed, pertinent medications include the following: Tylenol 650 mg p.o. q. 6 hours p.r.n. mild pain or fevers, albuterol 2.5 mg nebulized q. 3 hours p.r.n. shortness of breath, amlodipine 5 mg p.o. daily, Tessalon Perles 100 mg p.o. q. 6 hours p.r.n. cough, heparin 5000 units subcutaneously q. 12 hours, insulin drip was going at 4 units per hour. Lamictal 200 mg p.o. daily, Zofran 4 mg p.o. q. 8 hours p.r.n. nausea and vomiting. ALLERGIES: SHELLFISH DERIVED PRODUCTS. Nature of this allergy is unknown. DIET: Obese lady, denies acute weight loss or gain in the preceding few weeks to months. SOCIAL HISTORY: Lives in the community. Denies alcohol, tobacco or illicit drug use or abuse. FAMILY HISTORY: Otherwise, noncontributory. REVIEW OF SYSTEMS: No loss of consciousness. She did have the altered mental status. No new onset seizures. No new onset focal weakness. Denies gross hematochezia or melena. She did complain of some hematemesis. Denied hemoptysis. Denies palpitations. Denies heat or cold intolerance. Denied polydipsia, polyuria. Complete 13 system review of system was obtained. Pertinent positives and/or negatives as in body of history above, otherwise noncontributory. PHYSICAL EXAMINATION: VITAL SIGNS: At presentation in the emergency room, review of the vital signs shows that she was afebrile, temperature 97.6 degrees Fahrenheit, pulse of 121, respiratory rate of 32, blood pressure 116/66, O2 sats 100%, inspired oxygen concentration at that time was not recorded. When I stopped by to see her O2 sats were 99%, I believe that was on 2 liters nasal cannula. GENERAL: She is a middle-aged obese female. Normocephalic, atraumatic. Resting in bed with normal respiratory effort at rest. HEAD, EYES, EARS, NOSE AND THROAT: Anicteric. No conjunctival erythema. Oropharynx was dry. No gross. NECK: No jugular venous distention, no thyromegaly. Grossly, there were no palpable lymph nodes in the supraclavicular or submandibular lymph node chains, auscultation of both lung orta unremarkable. LUNGS: Clear bilaterally with good bilateral air movement. HEART: Sounds 1 and 2 are heard. There were regular rate and rhythm at the time of my evaluation without overt rubs or murmurs. ABDOMEN: Soft, full, protuberant. Bowel sounds are positive, mildly tender in the epigastric region. No palpable hepatosplenomegaly. EXTREMITIES: Without overt digital clubbing or cyanosis, no pedal edema. Pedal pulses are 2+ bilaterally. NEUROLOGIC: Pupils are equal, round, about 4 mm, reactive to light. Extraocular muscle movements were intact. She, however, was somnolent to lethargic at times. SKIN: Normal turgor in the areas examined without overt cellulitis or rash. Please see the wound care nurses' notes for full description of her skin. Mood and affect was somewhat flat, little bit of schizoaffective behavior, appeared to have poor insight and judgment. LABORATORY DATA: From my review are as follows: Admission white cell count 12,000, hemoglobin 15.1, hematocrit 50.7, platelet count 187. No band forms on the manual differential. INR 1.16. Venous blood gas showed a pH of 7.01. Serum sodium was 132, potassium 6.6, chloride 96, bicarbonate 5, BUN 34, creatinine 1.5, glucose 566. Phosphorus and mag within normal limits. Liver function tests essentially within normal limits. Urinalysis negative for nitrites and leukocyte esterase. She did have 10 white cells per high power field. Coronavirus PCR testing is pending. ASSESSMENT: 1. Acute encephalopathy, presumably due to diabetic ketoacidosis. 2. Diabetic ketoacidosis. 3. Severe metabolic acidosis. 4. Acute kidney injury. 5. Hyperkalemia. 6. Leukocytosis. 7. History of diabetes. 8. History of hypertension. 9. Migraine. 10. Bipolar disorder. 11. Schizoaffective disorder. 12. Posttraumatic stress disorder. 13. Obesity. PLAN: She will be continued on the IV insulin therapy and watch her closely. She will remain n.p.o. for now. Volume resuscitation is ongoing and fluids will be adjusted per protocol. Oxygen will be weaned to keep sats greater than or equal to 90%. Aspiration precautions will be maintained. We will keep a close eye on her mental status. Hopefully, that improves as her metabolic acidosis and DKA resolves. I note the leukocytosis. I see no acute indication for antibiotic therapy. She also denies any open sores or wounds on her body. Her chronic home meds will be reintroduced as needed and once she is off the n.p.o. status, oral medications will be reintroduced. Physical therapy and occupational therapy will be ordered. Oral nutrition will be the feeding modality of choice once of the diabetic ketoacidosis protocol. Nephrology evaluation will be at the behest of the attending physician. The numbers are looking a little bit better in terms of her renal failure as well as the hyperkalemia. The gap is still elevated, but improving. She is appropriately on DVT prophylaxis. I will be putting her on GI prophylaxis with IV Pepcid. Flu and pneumonia vaccination will be addressed per protocol. Thank you very much for the consult, Dr. Ge. We will follow along and make further recommendations as picture progresses/becomes clearer. She is critically ill on life-sustaining interventions including the IV insulin therapy, at a high risk of from endocrine system and perhaps neurologic system decompensation. Time was spent about 35 minutes of critical care time without overlap and excluding any procedural time that may be necessary. TID: [id number] RECEIPT: [id number] [facility]
--- NOTE | 2020-08-06 07:35 | Progress Note ---
Assessment and Plan Assessment and plan: This is a 50-year-old female with HTN, DM, migraine headaches, bipolar, depression, PTSD, schizoaffective disorder, nicotine dependence admitted to the ICU with SIRS, diabetic ketoacidosis, acute kidney injury SIRS DKA COVID-19 PUI Leukocytosis Polycythemia Hyperkalemia (resolved) Metabolic acidosis Acute kidney injury secondary to vasomotor nephropathy Hyperglycemia Diabetes mellitus Hypertension Migraine headaches Bipolar Depression Schizoaffective disorder PTSD Nicotine dependence -CCM and Nutrition consulted, appreciate recommendations -COVID-19 PCR pending -Contact/droplet isolation -Insulin drip -Hemoglobin A1c pending -Transition to SSI when appropriate -N.p.o. for now, CC diet when appropriate -Continue home Lamictal -Hold home metformin, Januvia -Continue home amlodipine, titrate as needed -Trend BMP and CBC -Tobacco cessation education DVT/GI prophylaxis: PPI, heparin subcu, SCDs to bilateral lower extremity while in bed Disposition: ICU, possible transfer to floor 08/06/2020; patient was admitted to ICU and was treated appropriately for DKA according to DKA protocol. Currently patient is off insulin drip. Patient is on Lantus 30 units nightly, sliding scale insulin. Blood sugars in target. Patient was on Januvia, Metformin and as needed insulin. Nutrition consult. A1c is 12.5. Patient counseled about medication adherence. I go over her home medications and discharged home. History Interval history: Patient was seen and evaluated this morning Patient does not have any complaints Patient states she was not compliant with her medications Hospitalist Physical - Physical exam Narrative exam: Not in cardiopulmonary distress. The patient appeared well nourished and normally developed. Vital signs as documented. Head exam is unremarkable. No scleral icterus . Neck is without jugular venous distension, thyromegaly, or carotid bruits. Lungs are clear to auscultation. Cardiac exam reveals regular rate and Rhythm. Abdominal exam reveals normal bowel sounds, nontender, no organomegaly. Extremities are nonedematous and both femoral and pedal pulses are normal. BIOLOGY INTERN: Alert and oriented 3. No focal weakness. - Constitutional Vitals: Temp Pulse Resp BP Pulse Ox 99.0 F 98 H 17 92/53 99 08/06/20 04:03 08/06/20 04:03 08/06/20 06:21 08/06/20 04:03 08/06/20 04:03 General appearance: Present: no acute distress Results - Labs CBC & Chem 7: 08/06/20 07:36 08/06/20 07:36 Labs: Laboratory Last Values WBC 9.0 K/mm3 (4.5-11.0) 08/05/20 15:39 RBC 5.05 M/mm3 (3.65-5.03) H 08/05/20 15:39 Hgb 14.4 gm/dl (10.1-14.3) H 08/05/20 15:39 Hct 43.8 % (30.3-42.9) H D 08/05/20 15:39 MCV 87 fl (79-97) 08/05/20 15:39 MCH 29 pg (28-32) 08/05/20 15:39 MCHC 33 % (30-34) 08/05/20 15:39 RDW 14.5 % (13.2-15.2) 08/05/20 15:39 Plt Count 153 K/mm3 (140-440) 08/05/20 15:39 Add Manual Diff Complete 08/05/20 15:39 Total Counted 100 08/05/20 15:39 Seg Neuts % (Manual) 72.0 % (40.0-70.0) H 08/05/20 15:39 Band Neutrophils % 3.0 % 08/05/20 15:39 Lymphocytes % (Manual) 14.0 % (13.4-35.0) 08/05/20 15:39 Monocytes % (Manual) 10.0 % (0.0-7.3) H 08/05/20 15:39 Eosinophils % (Manual) 1.0 % (0.0-4.3) 08/05/20 15:39 Nucleated RBC % Not Reportable 08/05/20 15:39 Seg Neutrophils # Man 6.5 K/mm3 (1.8-7.7) 08/05/20 15:39 Band Neutrophils # 0.3 K/mm3 08/05/20 15:39 Lymphocytes # (Manual) 1.3 K/mm3 (1.2-5.4) 08/05/20 15:39 Abs React Lymphs (Man) 0.0 K/mm3 08/05/20 15:39 Monocytes # (Manual) 0.9 K/mm3 (0.0-0.8) H 08/05/20 15:39 Eosinophils # (Manual) 0.1 K/mm3 (0.0-0.4) 08/05/20 15:39 Basophils # (Manual) 0.0 K/mm3 (0.0-0.1) 08/05/20 15:39 Metamyelocytes # 0.0 K/mm3 08/05/20 15:39 Myelocytes # 0.0 K/mm3 08/05/20 15:39 Promyelocytes # 0.0 K/mm3 08/05/20 15:39 Blast Cells # 0.0 K/mm3 08/05/20 15:39 WBC Morphology Not Reportable 08/05/20 15:39 Hypersegmented Neuts Not Reportable 08/05/20 15:39 Hyposegmented Neuts Not Reportable 08/05/20 15:39 Hypogranular Neuts Not Reportable 08/05/20 15:39 Smudge Cells Not Reportable 08/05/20 15:39 Toxic Granulation Not Reportable 08/05/20 15:39 Toxic Vacuolation Not Reportable 08/05/20 15:39 Dohle Bodies Not Reportable 08/05/20 15:39 Pelger-Huet Anomaly Not Reportable 08/05/20 15:39 Ml Rods Not Reportable 08/05/20 15:39 Platelet Estimate Consistent w auto 08/05/20 15:39 Clumped Platelets Not Reportable 08/05/20 15:39 Plt Clumps, EDTA Not Reportable 08/05/20 15:39 Large Platelets Not Reportable 08/05/20 15:39 Giant Platelets Not Reportable 08/05/20 15:39 Platelet Satelliting Not Reportable 08/05/20 15:39 Plt Morphology Comment Not Reportable 08/05/20 15:39 RBC Morphology Normal 08/05/20 15:39 Dimorphic RBCs Not Reportable 08/05/20 15:39 Polychromasia Not Reportable 08/05/20 15:39 Hypochromasia Not Reportable 08/05/20 15:39 Poikilocytosis Not Reportable 08/05/20 15:39 Anisocytosis Not Reportable 08/05/20 15:39 Microcytosis Not Reportable 08/05/20 15:39 Macrocytosis Not Reportable 08/05/20 15:39 Spherocytes Not Reportable 08/05/20 15:39 Pappenheimer Bodies Not Reportable 08/05/20 15:39 Sickle Cells Not Reportable 08/05/20 15:39 Target Cells Not Reportable 08/05/20 15:39 Tear Drop Cells Not Reportable 08/05/20 15:39 Ovalocytes Not Reportable 08/05/20 15:39 Helmet Cells Not Reportable 08/05/20 15:39 Jacobo-[place] Bodies Not Reportable 08/05/20 15:39 [place] Rings Not Reportable 08/05/20 15:39 Quentin Cells Not Reportable 08/05/20 15:39 Bite Cells Not Reportable 08/05/20 15:39 Crenated Cell Not Reportable 08/05/20 15:39 Elliptocytes Not Reportable 08/05/20 15:39 Acanthocytes (Spur) Not Reportable 08/05/20 15:39 Rouleaux Not Reportable 08/05/20 15:39 Hemoglobin C Crystals Not Reportable 08/05/20 15:39 Schistocytes Not Reportable 08/05/20 15:39 Malaria parasites Not Reportable 08/05/20 15:39 Eriberto Bodies Not Reportable 08/05/20 15:39 Hem Pathologist Commnt No 08/05/20 15:39 PT 14.8 Sec. (12.2-14.9) 08/04/20 15:31 INR 1.16 (0.87-1.13) H 08/04/20 15:31 APTT 28.1 Sec. (24.2-36.6) 08/04/20 15:31 VBG pH 7.010 (7.320-7.420) L* 08/04/20 15:31 Sodium 139 mmol/L (137-145) 08/05/20 15:39 Potassium 4.0 mmol/L (3.6-5.0) 08/05/20 15:39 Chloride 111.1 mmol/L (98-107) H 08/05/20 15:39 Carbon Dioxide 15 mmol/L (22-30) L 08/05/20 15:39 Anion Gap 17 mmol/L 08/05/20 15:39 BUN 16 mg/dL (7-17) 08/05/20 15:39 Creatinine 0.9 mg/dL (0.6-1.2) 08/05/20 15:39 Estimated GFR > 60 ml/min 08/05/20 15:39 BUN/Creatinine Ratio 18 % 08/05/20 15:39 Glucose 139 mg/dL (65-100) H 08/05/20 15:39 POC Glucose 226 mg/dL (70-105) H 08/05/20 21:46 Hemoglobin A1c 12.4 % (4-6) H 08/05/20 15:39 Ketones Quantitative Small (Negative) 08/04/20 15:31 Calcium 8.4 mg/dL (8.4-10.2) 08/05/20 15:39 Phosphorus 4.30 mg/dL (2.5-4.5) 08/04/20 16:53 Magnesium 1.90 mg/dL (1.7-2.3) 08/04/20 16:53 Total Bilirubin 0.40 mg/dL (0.1-1.2) 08/04/20 15:31 Direct Bilirubin 0.3 mg/dL (0-0.2) H 08/04/20 15:31 Indirect Bilirubin 0.1 mg/dL 08/04/20 15:31 AST 15 units/L (5-40) 08/04/20 15:31 ALT 11 units/L (7-56) 08/04/20 15:31 Alkaline Phosphatase 120 units/L (35-129) 08/04/20 15:31 Total Protein 7.1 g/dL (6.3-8.2) 08/04/20 15:31 Albumin 3.4 g/dL (3.9-5) L 08/04/20 15:31 Albumin/Globulin Ratio 0.9 % 08/04/20 15:31 Lipase 131 units/L (13-60) H 08/04/20 15:31 Urine Color Yellow (Yellow) 08/04/20 15:32 Urine Turbidity Slightly-cloudy (Clear) 08/04/20 15:32 Urine pH 5.0 (5.0-7.0) 08/04/20 15:32 Ur Specific [place] 1.021 (1.003-1.030) 08/04/20 15:32 Urine Protein 100 mg/dl mg/dL (Negative) 08/04/20 15:32 Urine Glucose (UA) >=500 mg/dL (Negative) 08/04/20 15:32 Urine Ketones 80 mg/dL (Negative) 08/04/20 15:32 Urine Blood Lg (Negative) 08/04/20 15:32 Urine Nitrite Neg (Negative) 08/04/20 15:32 Urine Bilirubin Neg (Negative) 08/04/20 15:32 Urine Urobilinogen < 2.0 mg/dL (<2.0) 08/04/20 15:32 Ur Leukocyte Esterase Neg (Negative) 08/04/20 15:32 Urine WBC (Auto) 10.0 /HPF (0.0-6.0) H 08/04/20 15:32 Urine RBC (Auto) 31.0 /HPF (0.0-6.0) 08/04/20 15:32 U Epithel Cells (Auto) 6.0 /HPF (0-13.0) 08/04/20 15:32 Urine Mucus Few /HPF 08/04/20 15:32 Urine Yeast (Budding) Few /HPF 08/04/20 15:32 Coronavirus (PCR) Negative (Negative) 08/05/20 Unknown Wiley/IV: Voiding Method Toilet Active Medications - Current Medications Current Medications: Generic Name Dose Route Start Last Admin Trade Name Freq PRN Reason Stop Dose Admin Acetaminophen 650 mg 08/05/20 13:22 08/06/20 05:21 Acetaminophen 325 Mg Tab PO 650 mg Q6H PRN Administration Pain, Mild (1-3) Albuterol 2.5 mg 08/04/20 17:01 Albuterol 2.5 Mg/3 Ml Nebu IH Q3H PRN Shortness Of Breath Amlodipine Besylate 5 mg 08/05/20 10:00 08/05/20 09:28 Amlodipine 10 Mg Tab PO Not Given DAILY DAVID Benzonatate 100 mg 08/04/20 17:02 Benzonatate 100 Mg Cap PO Q6H PRN Cough Dextrose 50 ml 08/05/20 17:30 Dextrose 50% In Water (25gm) 50 Ml Syringe IV Q30MIN PRN Hypoglycemia Protocol Famotidine 20 mg 08/05/20 22:00 08/05/20 22:18 Famotidine 20 Mg Tab PO 20 mg QHS DAVID Administration Heparin Sodium (Porcine) 5,000 unit 08/04/20 22:00 08/05/20 22:18 Heparin 5,000 Unit/1 Ml Vial SUB-Q 5,000 unit Q12HR DAVID Administration Potassium Chloride/Dextrose/Sod Cl 20 meq in 1,000 mls @ 125 mls/hr 08/05/20 06:00 08/05/20 17:45 D5w/0.45% Nacl/Kcl 20 Meq IV Infused DIRECT DAVID Infusion Insulin Glargine 30 units 08/06/20 22:00 Insulin Glargine 100 Units/Ml SUB-Q QHS DAVID Insulin Human Lispro 0 unit 08/05/20 22:00 08/05/20 22:19 Insulin Lispro 100 Unit/Ml SUB-Q 2 unit ACHS DAVID Administration Protocol Lamotrigine 200 mg 08/05/20 10:00 08/05/20 10:16 Lamotrigine 100 Mg Tab PO 200 mg QDAY DAVID Administration Ondansetron HCl 4 mg 08/04/20 17:02 Ondansetron 4 Mg Odt Tab PO Q8H PRN Nausea Sodium Chloride 10 ml 08/04/20 22:00 08/05/20 22:20 Sodium Chloride 0.9% 10 Ml Flush Syringe IV 10 ml BID DAVID Administration Sodium Chloride 10 ml 08/04/20 17:01 Sodium Chloride 0.9% 10 Ml Flush Syringe IV PRN PRN LINE FLUSH
[2020-08-06 08:08] LABS: Hematocrit 37.2 % (30.3-42.9); Hemoglobin 12.6 gm/dl (10.1-14.3); Mean Corpuscular HGB Conc 34 % (30-34); Mean Corpuscular Volume 85 fl (79-97); Platelet Count 132 K/mm3 (140-440); Red Blood Count 4.36 M/mm3 (3.65-5.03); Red Cell Distribution Width 14.5 % (13.2-15.2)
[2020-08-06 08:27] LABS: BUN/Creatinine Ratio 18; Blood Urea Nitrogen 14 mg/dL (7-17); Calcium 8.6 mg/dL (8.4-10.2); Hemolysis Index 0
--- NOTE | 2020-08-06 08:55 | Discharge Summary ---
Providers - Providers Date of Admission: 08/04/20 17:01 Date of discharge: 08/06/20 Attending physician: ARRON HERNANDEZ MD 08/05/20 13:20 Consult to Dietitian/Nutrition [CONS] Routine Physician Instructions: Reason For Exam: Reason for Consult: Diet education 08/06/20 07:21 Consult to Dietitian/Nutrition [CONS] Routine Physician Instructions: Reason For Exam: Reason for Consult: Diet education Hospitalization Reason for admission: DKA, medication non-compliance Condition: Stable Hospital course: This is a 50-year-old female with HTN, DM, migraine headaches, bipolar, depression, PTSD, schizoaffective disorder, nicotine dependence admitted to the ICU with SIRS, diabetic ketoacidosis, acute kidney injury SIRS DKA COVID-19 PUI Leukocytosis Polycythemia Hyperkalemia (resolved) Metabolic acidosis Acute kidney injury secondary to vasomotor nephropathy Hyperglycemia Diabetes mellitus Hypertension Migraine headaches Bipolar Depression Schizoaffective disorder PTSD Nicotine dependence -CCM and Nutrition consulted, appreciate recommendations -COVID-19 PCR pending -Contact/droplet isolation -Insulin drip -Hemoglobin A1c pending -Transition to SSI when appropriate -N.p.o. for now, CC diet when appropriate -Continue home Lamictal -Hold home metformin, Januvia -Continue home amlodipine, titrate as needed -Trend BMP and CBC -Tobacco cessation education DVT/GI prophylaxis: PPI, heparin subcu, SCDs to bilateral lower extremity while in bed Disposition: ICU, possible transfer to floor 08/06/2020; patient was admitted to ICU and was treated appropriately for DKA according to DKA protocol. Currently patient is off insulin drip. Patient is on Lantus 30 units nightly, sliding scale insulin. Blood sugars were in target. Patient was on glipizide, Levemir and as needed. Nutrition consulted. A1c is 12.5. Patient states she has been taking Levemir 20 mg on and off. I advised the patient to take regularly 30 units of Levemir. She states she has Levemir at home and does not need any prescription. She states she has glipizide and advised to continue to take it. Patient states she was on Metformin but she does not take it because it caused her vomiting. I changed to extended release Metformin and she will try that. Her chart does not reflect the exact medication she was taking. She said she was not taking Januvia but the in the chart show she has been taking. I have advised the patient to have follow-up with her primary care physician. Patient extensively counseled about to be compliant with his medications and diet. Patient verbalized she understood. Patient was stable for discharge. Disposition: DC-01 TO HOME OR SELFCARE Final Discharge Diagnosis (Prints w/discharge instructions): DKA. Medication non-compliance Time spent for discharge: 35 minutes - Discharge Diagnoses (1) DKA (diabetic ketoacidosis) Status: Acute Qualifiers: Diabetes mellitus type: type 1 (2) Metabolic acidosis Status: Acute Core Measure Documentation - Palliative Care Palliative Care/ Comfort Measures: Not Applicable - Core Measures Any of the following diagnoses?: none Exam - Physical Exam Narrative exam: Not in cardiopulmonary distress. The patient appeared well nourished and normally developed. Vital signs as documented. Head exam is unremarkable. No scleral icterus . Neck is without jugular venous distension, thyromegaly, or carotid bruits. Lungs are clear to auscultation. Cardiac exam reveals regular rate and Rhythm. Abdominal exam reveals normal bowel sounds, nontender, no organomegaly. Extremities are nonedematous and both femoral and pedal pulses are normal. APPLICATIONS INSTRUCTOR: Alert and oriented 3. No focal weakness. - Constitutional Vitals: Temp Pulse Resp BP Pulse Ox 99.0 F 98 H 17 92/53 99 08/06/20 04:03 08/06/20 04:03 08/06/20 06:21 08/06/20 04:03 08/06/20 04:03 Plan Activity: no restrictions Weight Bearing Status: Full Weight Bearing Diet: diabetic Follow up with: JOSE RAFAEL ROSSI [Other] - 3-5 Days Prescriptions: metFORMIN XR [Glucophage XR] 500 mg PO QDAY #30 tab
[2020-08-06] MEDS: INSULIN LISPRO 100 UNIT/ML SUB-Q SCH ×2 (09:15→12:24)
[2020-08-06] MEDS: HEPARIN 5,000 UNIT/1 ML VIAL SUB-Q SCH (09:16)
[2020-08-06] MEDS: lamoTRIgine 100 MG TAB PO SCH (09:16)
[2020-08-06] MEDS: amLODIPine 10 MG TAB PO SCH (09:19)
[2020-08-06 09:21] VITALS: BP 99/62
--- NOTE | 2020-08-06 17:51 | Electrocardiograph Report ---
[facility] Test Date: 2020-08-04 Test Time: 16:03:51 Pat Name: JT HOYOS Department: Room: A381 Gender: F Refuse Laborer: SHAYY : 1970 Requested By: KANU RAPP Order Number: [id number] Reading MD: Avila Betancourt Measurements Intervals [place] Rate: 107 P: 80 IA: 123 QRS: 35 QRSD: 84 T: 46 QT: 343 QTc: 457 Interpretive Statements Sinus tachycardia No previous ECG available for comparison Electronically Signed On 08-06-2020 17:51:23 EDT by Avila Betancourt
[2020-08-06] MEDS ORDERED: INSULIN GLARGINE 100 UNITS/ML SUB-Q SCH (22:00)
== END 2020-08-06 17:30 | disposition home or self-care (01) | DRG 637 ==
LOC: ED 15:01 → CC1 17:01 → 3A 08-05 21:12
PROVIDERS: ADMIT Internal Medicine; ATTEND Internal Medicine
DX: E11.10 Type 2 diabetes mellitus with ketoacidosis without coma (principal); N17.0 Acute kidney failure with tubular necrosis; E87.2 Acidosis; R65.10 Systemic inflammatory response syndrome (SIRS) of non-infectious origin without acute organ dysfunction; N39.0 Urinary tract infection, site not specified; Z20.822 Contact with and (suspected) exposure to COVID-19; E87.5 Hyperkalemia; K29.70 Gastritis, unspecified, without bleeding; I10 Essential (primary) hypertension; F31.9 Bipolar disorder, unspecified; F43.10 Post-traumatic stress disorder, unspecified; K52.9 Noninfective gastroenteritis and colitis, unspecified; E66.9 Obesity, unspecified; F25.9 Schizoaffective disorder, unspecified; D72.829 Elevated white blood cell count, unspecified; D75.1 Secondary polycythemia; G43.909 Migraine, unspecified, not intractable, without status migrainosus; Z71.6 Tobacco abuse counseling; Z91.013 Allergy to seafood; Z90.49 Acquired absence of other specified parts of digestive tract; Z90.710 Acquired absence of both cervix and uterus
CPT/HCPCS: 36415; 71045; 80048; 80076; 81001; 82010; 82805; 82962; 83036; 83690; 83735; 84100; 85007; 85025; 85027; 85610; 85730; 87086; 93005; 96365; G0378; C9113; J0696; J1644; J1815; J2405; J7030; J7120; U0003